=== PATIENT | female | born 1950 | race Caucasian/White ===

== ENCOUNTER 2018-08-24 13:04 | Inpatient (IN) | payer BC, OTHER ==
[2018-08-24] MEDS ORDERED: dilTIAZem HCL 50 MG/10 ML - 10 ML VIAL IVPUSH ONE ×2 (13:49→14:27)
[2018-08-24 13:56] LABS: BASO % 1.2 % (0-2.0); EOS % 1.4 % (0-4.5); HEMATOCRIT 41.9 % (32.4-45.2); HEMOGLOBIN 13.2 GM/dL (10.7-15.3); LYMPH % 24.3 % (8-40); MCH 22.9 pg (25.7-33.7); MCHC 31.6 g/dl (32.0-36.0); MEAN CELL VOLUME 72.4 fl (80-96); MEAN PLT VOLUME 7.9 fl (7.5-11.1); MONO % 8.3 % (3.8-10.2); NEUT % 64.8 % (42.8-82.8); PLATELET COUNT 210 K/MM3 (134-434); RDW 16.6 % (11.6-15.6); WHITE BLOOD COUNT 7.3 K/mm3 (4.0-10.0)
--- NOTE | 2018-08-24 13:56 | PDOC ---
History of Present Illness - General Chief Complaint: Chest Pain Stated Complaint: PCP SENT/CHEST PAIN/TACHYCARDIA Time Seen by Provider: 08/24/18 13:39 History Source: Patient, Primary Care Provider Exam Limitations: No Limitations - History of Present Illness Initial Comments: 08/24/18 13:51 The patient is a 67F with a PMH of CAD, HTN, diastolic dysfunction, HTN, and HLD who presents to the ER with complaints of palpitations. The patient states that she first noticed some shortness of breath and palpitations yesterday but didn't think anything of it. This morning, she states that the palpitations continued and her shortness of breath worsened so she called her PCP who sent her to her security chief museum's office. At her security chief museum's office she was noted to be in a-fib and was given medications. She denies any CP, fevers, chills, nausea , vomiting, cough, lightheadedness. Past History - Past Medical History Allergies/Adverse Reactions: Allergies Allergy/AdvReac Type Severity Reaction Status Date / Time Penicillins Allergy Rash Verified 08/24/18 13:09 Home Medications: Ambulatory Orders Aspirin [ASA -] 81 mg PO DAILY 08/24/18 Esomeprazole Magnesium [Nexium 24Hr] 40 mg PO DAILY 08/24/18 Hydrochlorothiazide [Hctz -] 12.5 mg PO DAILY 08/24/18 Nebivolol HCl [Bystolic] 10 mg PO DAILY 08/24/18 Pravastatin Sodium [Pravachol] 40 mg PO DAILY 08/24/18 Vitamin B Complex 1 each PO DAILY 08/24/18 Anemia: Yes (VIT B DEF) Asthma: Yes Cancer: No Cardiac Disorders: No CVA: No COPD: No CHF: No Dementia: No Diabetes: Yes (NEW DIAGNOSIS,NO MEDS) GI Disorders: Yes (GERD) Disorders: No HTN: Yes Hypercholesterolemia: No Liver Disease: Yes (ENLARGED LIVER) Seizures: No Thyroid Disease: No - Surgical History Abdominal Surgery: Yes (REPAIR UMBILICAL HERNIA) Appendectomy: No Cardiac Surgery: No Cholecystectomy: No Lung Surgery: No Neurologic Surgery: No Orthopedic Surgery: No - Suicide/Smoking/Psychosocial Hx Smoking History: Never smoked Have you smoked in the past 12 months: Yes Information on smoking cessation initiated: No Hx Alcohol Use: No Drug/Substance Use Hx: No Substance Use Type: None Hx Substance Use Treatment: No Review of Systems - Review of Systems Able to Perform ROS?: Yes Comments:: 08/24/18 13:56 GENERAL/CONSTITUTIONAL: No fever or chills. No weakness. HEAD, EYES, EARS, NOSE AND THROAT: No change in vision. No ear pain or discharge. No sore throat. CARDIOVASCULAR: Positive for palpitations. No chest pain or lightheadedness. RESPIRATORY: Positive for shortness of breath. No cough, wheezing, or hemoptysis. GASTROINTESTINAL: No nausea, vomiting, diarrhea, constipation, or abdominal pain. GENITOURINARY: No dysuria, frequency, hematuria, or change in urination. MUSCULOSKELETAL: No joint or muscle swelling or pain. No neck or back pain. SKIN: No rash or lesions. NEUROLOGIC: No headache, numbness, tingling, focal weakness, loss of consciousness, or change in strength/sensation. Is the patient limited Kyr[place]z proficient: No *Physical Exam - Vital Signs Last Vital Signs Temp Pulse Resp BP Pulse Ox 97.7 F 128 H 19 138/82 99 08/24/18 13:06 08/24/18 13:06 08/24/18 13:06 08/24/18 13:06 08/24/18 13:06 - Physical Exam Comments: 08/24/18 13:57 GENERAL: Well developed, well nourished. Awake and alert. No acute distress. HEENT: Normocephalic, atraumatic. Hearing grossly normal. Moist mucous membranes. PERRLA, EOMI. No conjunctival pallor. Sclera are non-icteric. Oropharynx is clear. NECK: Supple. Full ROM. No JVD CARDIOVASCULAR: Tachycardic with regular rhythm. No murmurs, rubs, or gallops. PULMONARY: No evidence of respiratory distress. Lungs clear to auscultation bilaterally. No wheezing, rales or rhonchi. ABDOMINAL: Soft. Non-tender. Non-distended. No rebound or guarding. GENITOURINARY: No CVA tenderness bilaterally. MUSCULOSKELETAL: Normal range of motion at all joints. No bony deformities or tenderness. EXTREMITIES: No cyanosis. No clubbing. No edema. No calf tenderness or swelling. SKIN: Warm and dry. Normal capillary refill. No rashes. No jaundice. NEUROLOGICAL: Alert, awake, appropriate. Cranial nerves 2-12 grossly intact. Normal speech. PSYCHIATRIC: Cooperative. Good eye contact. Appropriate mood and affect. Heart Score/ECG Review #1 General ECG Interpretation: Sinus Rhythm, Normal Rate, Normal Intervals, No acute ischemic changes Compared to previous ECG there are: Changes noted 08/24/18 15:00 A fib with RVR rate ~140 NJ - QRS 76 QTc 475 No STD or NEREYDA No signs of acute ischemia NEW CHANGES: a-fib. Prior EKG is NSR. ED Treatment Course - LABORATORY CBC & Chemistry Diagram: 08/24/18 13:48 08/24/18 13:48 - RADIOLOGY Radiology Studies Ordered: Category Date Time Status CHEST X-RAY PORTABLE* [RAD] Stat Radiology 08/24/18 13:46 Ordered Medical Decision Making - Medical Decision Making 08/24/18 15:02 The patient is a 67F with a PMH of CAD, HTN, HLD, and diastolic dysfunction who presents to the ER in new onset a-fib. The patient saw her security chief museum, Dr. Yeboah, who gave the patient IV lopressor x 2 without effect. She was also given eliquis. In our facility, she had an incoming BP of 130's/90's. Case d/w Dr. Howard who agrees wtih giving 10 dilt. 10 dilt given x 2 with effect. Trying 30 PO. Pt is continuing to be in a-fib with rates between 85-120. Will reassess and give another 30 if pt not tolerating and BP is stable. Dr. Vora called for admission. 08/24/18 15:[address] Shay for admission as the patient's PCP is Dr. Liu. HR between 85-115. Pressures stable. 08/24/18 15:41 I have endorsed the patient to Dr. Shay for admission. Will give 30 more diltiazem. *DC/Admit/Observation/Transfer Diagnosis at time of Disposition: New onset atrial fibrillation - Discharge Dispostion Condition at time of disposition: Guarded Decision to Admit order: Yes - Referrals - Patient Instructions - Post Discharge Activity
[2018-08-24] MEDS ORDERED: dilTIAZem HCL 50 MG/10 ML - 10 ML VIAL ONE (14:04)
[2018-08-24 14:19] LABS: INR 1.24 (0.83-1.09); PROTHROMBIN TIME (PATIENT) 14.7 SEC (9.7-13.0)
[2018-08-24] MEDS ORDERED: DILTIAZEM INJECTION 125 MG in SODIUM CHLORIDE 100 ML IVPB SCH (14:30)
[2018-08-24] MEDS ORDERED: dilTIAZem HCL 30 MG TABLET (FP) PO ONE ×2 (14:31→16:03)
[2018-08-24] MEDS ORDERED: dilTIAZem HCL 30 MG TABLET (FP) ONE ×2 (14:31→16:05)
[2018-08-24 14:38] LABS: ALBUMIN 3.9 g/dl (3.4-5.0); ALK PHOS 73 U/L (45-117); ANION GAP 8 MMOL/L (8-16); BILIRUBIN,TOTAL 0.3 mg/dL (0.2-1); BLOOD UREA NITROGEN 13 mg/dL (7-18); CALCIUM 9.1 mg/dL (8.5-10.1); CHLORIDE 105 mmol/L (98-107); CO2 29 mmol/L (21-32); CREATININE 0.7 mg/dL (0.55-1.3); GLUCOSE,RANDOM 82 mg/dL (74-106); MAGNESIUM 2.2 mg/dL (1.8-2.4); SGOT/AST 15 U/L (15-37); SGPT/ALT 21 U/L (13-61); SODIUM 143 mmol/L (136-145); TOT PROT 7.2 g/dl (6.4-8.2)
--- NOTE | 2018-08-24 14:53 | CON.CARD ---
Consult Consult Specialty:: Cardiology Referred by:: Lindsey Liu MD Reason for Consultation:: Rapid afib - History of Present Illness Chief Complaint: HERNANDEZ and palpitations History of Present Illness: 67-year-old female of /[place] descent with known history of coronary artery disease negative myocardial perfusion imaging study for myocardial ischemia July 14, 2016 angina pectoris, diastolic/systolic left ventricular dysfunction with chronic class 0-I [place] Heart [employer] classification left ventricular failure on echocardiography performed July 09, 2016 and August 12, 2017 (mild degree of systolic left ventricular dysfunction on echocardiography performed April 27, 2014), mitral valve regurgitation mild to moderate in severity on echocardiography performed July 09, 2016 and mild in severity on echocardiography performed July, aortic valve regurgitation moderate in severity, tricuspid valve regurgitation mild in severity with calculated RVSP of 36 mmHg on echocardiography performed July 09, 2016 and 30.6 mmHg on echocardiography performed August 12, 2017, hypertensive cardiovascular disease, hypercholesterolemia, benign positional vertigo, reactive airway disease, gastro -esophageal reflux disease, degenerative cervical disc disease with cervical radiculopathy, degenerative lumbosacral disc disease with lumbar radiculopathy and degenerative joint disease who was evaluated in the office August 24, 2018. Patient reports palpitations, dyspnea on exertion w/o near or true syncope, chest discomfort, orthopnea, paroxysmal nocturnal dyspnea or peripheral edema or fatigue. She was found in newly diagnosed rapid afib persisting despite IV Lopressor administered at office and referred to ED and rate-controlled with Cardizem. - History Source History Provided By: Patient Limitations to Obtaining History: No Limitations - Past Medical History Cardio/Vascular: Yes: HTN, Hyperlipdemia - Alcohol/Substance Use Hx Alcohol Use: No - Smoking History Smoking history: Never smoked Have you smoked in the past 12 months: Yes Home Medications - Allergies Allergies/Adverse Reactions: Allergies Allergy/AdvReac Type Severity Reaction Status Date / Time Penicillins Allergy Rash Verified 08/24/18 13:09 - Home Medications Home Medications: Ambulatory Orders Aspirin [ASA -] 81 mg PO DAILY 08/24/18 Esomeprazole Magnesium [Nexium 24Hr] 40 mg PO DAILY 08/24/18 Hydrochlorothiazide [Hctz -] 12.5 mg PO DAILY 08/24/18 Nebivolol HCl [Bystolic] 10 mg PO DAILY 08/24/18 Pravastatin Sodium [Pravachol] 40 mg PO DAILY 08/24/18 Vitamin B Complex 1 each PO DAILY 08/24/18 Family Disease History - Family Disease History Family Disease History: Heart Disease: Father ([place]), Mother ([place]) Review of Systems - Review of Systems Cardiovascular: reports: Palpitations Respiratory: reports: Exercise Intolerance, SOB, SOB on Exertion Vital Signs: Vital Signs Temperature 97.7 F 08/24/18 13:06 Pulse Rate 93 H 08/24/18 14:36 Respiratory Rate 17 08/24/18 14:24 Blood Pressure 122/77 08/24/18 14:36 O2 Sat by Pulse Oximetry (%) 98 08/24/18 14:24 Constitutional: Yes: No Distress, Calm Neck: Yes: Supple Respiratory: Yes: Regular, Diminished Gastrointestinal: Yes: Normal Bowel Sounds, Soft, Abdomen, Obese Cardiovascular: Yes: Tachycardia, Pulse Irregular JVD: No Carotid Bruit: No Heart Sounds: Yes: S1, S2 Edema: No - Other Data Labs, Other Data: CBC, BMP 08/24/18 13:48 08/24/18 13:48 INR, PTT INR 1.24 (0.83-1.09) H 08/24/18 13:48 Troponin, BNP 08/24/18 13:48 Troponin I < 0.02 Troponin, BNP 08/24/18 13:48 Troponin I < 0.02 Afib @ 136 Problem List - Problems (1) Paroxysmal atrial fibrillation Code(s): I48.0 - PAROXYSMAL ATRIAL FIBRILLATION (2) Hypertensive cardiomyopathy Code(s): I11.9 - HYPERTENSIVE HEART DISEASE WITHOUT HEART FAILURE; I43 - CARDIOMYOPATHY IN DISEASES CLASSIFIED ELSEWHERE Qualifiers: Heart failure presence: without heart failure Qualified Code(s): I11.9 - Hypertensive heart disease without heart failure; I43 - Cardiomyopathy in diseases classified elsewhere (3) Hyperlipidemia Code(s): E78.5 - HYPERLIPIDEMIA, UNSPECIFIED Qualifiers: Hyperlipidemia type: pure hypercholesterolemia Qualified Code(s): E78.00 - Pure hypercholesterolemia, unspecified; E78.0 - Pure hypercholesterolemia (4) Diastolic dysfunction Code(s): I51.9 - HEART DISEASE, UNSPECIFIED Assessment/Plan Echocardiography performed August 12, 2017 revealed normal left ventricular size and systolic function with estimated left ventricular ejection fraction between 55-60%, normal right ventricular size and systolic function, aortic valve leaflet sclerosis with no evidence of leaflet restriction and mild to moderate aortic valve regurgitation, mild mitral valve regurgitation, mild tricuspid valve regurgitation with calculated RVSP of 30.6 mmHg. Carotid Doppler study performed July 15, 2016 revealed normal carotid sonogram with no evidence of atherosclerotic plaque or hemodynamically significant stenosis. Myocardial perfusion imaging study performed July 14, 2016 revealed small size apical wall defect compatible with apical thinning/attenuation with normal left ventricular contraction pattern on LV gated analysis with calculated left ventricular ejection fraction of 72% at rest and 75% at peak exercise reported at 85% of maximum predicted target heart rate with fair exercise tolerance and capacity and appropriate blood pressure response to level of exercise. Patient exercised for 6 minutes and 46 seconds into stage III of Gene protocol with peak exercise heart rate of 132 beats per minutes and peak exercise blood pressure of 176/90 mmHg. ASSESSMENT: 1. Paroxysmal atrial fibrillation with RVR [id number] 2. Coronary artery disease negative myocardial perfusion imaging study for myocardial ischemia angina pectoris, stable. 3. Diastolic/systolic left ventricular dysfunction with chronic class 0-I [place] Heart [employer] classification left ventricular failure, compensated/ euvolemic. 4. Mitral valve regurgitation mild to moderate in severity on echocardiography performed July 09, 2016 and mild in severity on echocardiography performed August 12, 2017. 5. Aortic valve regurgitation moderate in severity. 6. Tricuspid valve regurgitation mild in severity with calculated RVSP of 36 mmHg on echocardiography performed July 09, 2016 and RVSP of 30.6 mmHg on echocardiography performed August 12, 2017. 7. Hypertensive cardiovascular disease, labile blood pressure. 8. Hypercholesterolemia, not at goal. 9. Abnormal hemoglobin A1C. 10. History of benign positional vertigo. 11. History of reactive airway disease. 12. History of gastro-esophageal reflux disease. 13. History of degenerative cervical disc disease with cervical radiculopathy. 14. History of degenerative lumbosacral disc disease with lumbar radiculopathy. 15. History of degenerative joint disease. 16. Exogenous obesity. PLAN: 1. Started Toprol XL 25 qd with uptitration as needed for rate-control, agree with Eliquis 5 bid and d/c ASA 81 qd given elevated risk score 2. F/u echo results, TSH 3. Continue statin 4. If afib persists will consider cardioversion either FRANCISCO-guided or after several weeks of Eliquis 5. Thank you for consultative opportunity
--- NOTE | 2018-08-24 15:05 | PDOC ---
Attending Attestation - Resident Resident Name: John Mckeon - ED Attending Attestation I have performed the following: I have examined & evaluated the patient, The case was reviewed & discussed with the resident, I agree w/resident's findings & plan - HPI HPI: 08/24/18 15:05 67 year old female with a significant past medical history of CAD, HTN, diastolic dysfunction, HTN, and HLD who presents to the emergency department for palpitations for 2 days. She states that today, she began to experience some associated shortness of breath with her palpitations. She reports that she went to her generator mechanic today by which he sent her to the ED for further evaluation of new onset afib. 08/24/18 17:20 - Physicial Exam PE: 08/24/18 17:22 NAD, well appearing, PERRL, EOMI, MMM, nl conjunctiva, anicteric; neck supple. lungs clear, irregular irregular, abdomen soft nontender. HERNANDEZ x4, no focal neuro deficits. b/l nonpitting edema in lower extrem. normal color for ethnicity , WWP. - Medical Decision Making 08/24/18 15:06 67F with a PMH of CAD, HTN, diastolic dysfunction, HTN, and HLD presenting with palpitations and cp/sob found in new onset Afib RVR rate controlled with diltiazem labs and lytes, TSH normal cards cs for management, PO AC given - seen by Dr. Cooper, inpatient echo and further care. admit to tele for further management of new onset Afib. 08/24/18 17:22 Heart Score/ECG Review - ECG Impressions Normal ECG: No Non-specific ST Elevation: No Ischemic Changes: No Tachycardia: Afib w/rapid Vent rate
[2018-08-24] MEDS ORDERED: metoPROLOL SUCCINATE 25 MG TAB.SR.24H (FP) PO ONE (16:19)
[2018-08-24 20:30] VITALS: BMI 37.1
[2018-08-24] MEDS: APIXABAN 5 MG TABLET PO SCH (21:14)
[2018-08-24] MEDS ORDERED: ATORVASTATIN CA 10 MG TABLET (FP) PO SCH (22:00)
[2018-08-25 06:33] LABS: BASO % 0.4 % (0-2.0); EOS % 2.3 % (0-4.5); HEMATOCRIT 37.1 % (32.4-45.2); HEMOGLOBIN 11.8 GM/dL (10.7-15.3); LYMPH % 26.6 % (8-40); MCH 22.9 pg (25.7-33.7); MCHC 31.7 g/dl (32.0-36.0); MEAN CELL VOLUME 72.2 fl (80-96); MEAN PLT VOLUME 8.3 fl (7.5-11.1); MONO % 9.1 % (3.8-10.2); NEUT % 61.6 % (42.8-82.8); PLATELET COUNT 171 K/MM3 (134-434); RBC 5.14 M/mm3 (3.60-5.2)
[2018-08-25 06:52] LABS: ALBUMIN 3.3 g/dl (3.4-5.0); ALK PHOS 61 U/L (45-117); ANION GAP 8 MMOL/L (8-16); BILIRUBIN,TOTAL 0.3 mg/dL (0.2-1); BLOOD UREA NITROGEN 17 mg/dL (7-18); CALCIUM 8.7 mg/dL (8.5-10.1); CHLORIDE 104 mmol/L (98-107); CHOLESTEROL 152 mg/dL (50-200); CO2 30 mmol/L (21-32); CREATININE 0.7 mg/dL (0.55-1.3); GLUCOSE,RANDOM 107 mg/dL (74-106); HDL CHOLESTEROL 47 mg/dL (40-60); POTASSIUM 3.9 mmol/L (3.5-5.1); SGOT/AST 13 U/L (15-37); SGPT/ALT 19 U/L (13-61); SODIUM 142 mmol/L (136-145); TRIGLYCERIDES 83 mg/dL (0-150)
--- NOTE | 2018-08-25 07:27 | HP ---
Admitting History and Physical - Admission History of Present Illness: 67 year old female with a significant past medical history of CAD, HTN, diastolic dysfunction, HTN, and HLD who presents to the emergency department for palpitations for 2 days. She states that today, she began to experience some associated shortness of breath with her palpitations. She reports that she went to her nurse extern today by which he sent her to the ED for further evaluation of new onset afib. - Past Medical History Cardiovascular: Yes: CAD, CHF (with preserved EF==55-60 %), HTN, Hyperlipdemia, Other (Valvular heart disease--aortic regurg mild to mod mild mitral and tricuspid) Gastrointestinal: Yes: GERD ...: No - Smoking History Smoking history: Never smoked Have you smoked in the past 12 months: Yes - Alcohol/Substance Use Hx Alcohol Use: No Home Medications - Allergies Allergies/Adverse Reactions: Allergies Allergy/AdvReac Type Severity Reaction Status Date / Time padmini Allergy Verified 08/24/18 20:58 mushroom Allergy Verified 08/24/18 20:58 Penicillins Allergy Rash Verified 08/24/18 13:09 lisinopril AdvReac Cough Verified 08/24/18 21:17 losartan AdvReac Cough Verified 08/24/18 21:17 - Home Medications Home Medications: Ambulatory Orders Aspirin [ASA -] 81 mg PO DAILY 08/24/18 Esomeprazole Magnesium [Nexium 24Hr] 40 mg PO DAILY 08/24/18 Hydrochlorothiazide [Hctz -] 12.5 mg PO DAILY 08/24/18 Nebivolol HCl [Bystolic] 10 mg PO DAILY 08/24/18 Pravastatin Sodium [Pravachol] 40 mg PO DAILY 08/24/18 Vitamin B Complex 1 each PO DAILY 08/24/18 Family Disease History - Family Disease History Family Disease History: Heart Disease: Father ([place]), Mother ([place]) Review of Systems - Review of Systems Cardiovascular: reports: Chest Pain (upper to neck), Palpitations, Shortness of Breath Respiratory: reports: SOB, SOB on Exertion. denies: Cough Gastrointestinal: reports: No Symptoms Genitourinary: reports: No Symptoms Neurological: reports: No Symptoms Physical Examination Vital Signs: Vital Signs Temperature 97.7 F 08/25/18 06:00 Pulse Rate 60 08/25/18 06:00 Respiratory Rate 20 08/25/18 06:00 Blood Pressure 136/58 L 11/08/18 06:00 O2 Sat by Pulse Oximetry (%) 96 08/24/18 21:00 Cardiovascular: Yes: Murmur, S1, S2 Respiratory: Yes: Regular, CTA Bilaterally Gastrointestinal: Yes: Normal Bowel Sounds, Soft. No: Tenderness Edema: No Neurological: Yes: Alert, Oriented Labs: CBC, BMP 08/25/18 05:30 08/25/18 05:30 Imaging - Results Chest X-ray: Report Reviewed Ultrasound: Report Reviewed (no dvt) Problem List - Problems (1) New onset atrial fibrillation Assessment/Plan: -Now in Sinus -Monitor on Toprol and eliquis -Echo -tsh,d-dimer normal Code(s): I48.91 - UNSPECIFIED ATRIAL FIBRILLATION (2) HTN (hypertension) Assessment/Plan: -MOnitor on meds Selected Entries 08/24/18 08/25/18 08/25/18 20:10 02:00 06:00 Blood Pressure 129/69 117/56 L 136/58 L Code(s): I10 - ESSENTIAL (PRIMARY) HYPERTENSION (3) CAD (coronary artery disease) Assessment/Plan: -Atypical symptoms at this time -Stress Test Code(s): I25.10 - ATHSCL HEART DISEASE OF [place] CORONARY ARTERY W/O ANG PCTRS (4) Chest pain, atypical Assessment/Plan: -Stress test -CE negative Code(s): R07.89 - OTHER CHEST PAIN
[2018-08-25 08:39] VITALS: BP 144/71; PULSE 66; TEMP 97.8
[2018-08-25] MEDS ORDERED: PANTOPRAZOLE 40 MG TABLET (FP) PO SCH (10:00)
[2018-08-25] MEDS ORDERED: FLU VACCINE QUAD 60 MCG/0.5 ML (MDV 18-19) IM ONE (10:00)
[2018-08-25] MEDS ORDERED: metoPROLOL SUCCINATE 25 MG TAB.SR.24H (FP) PO SCH (10:00)
[2018-08-25] MEDS ORDERED: ASPIRIN 81 MG CHEWABLE TABLETS PO SCH (10:00)
[2018-08-25] MEDS ORDERED: HYDROCHLOROTHIAZIDE 12.5 MG CAPSULE (FP) PO SCH (10:00)
[2018-08-25] MEDS: APIXABAN 5 MG TABLET PO SCH (10:42)
--- NOTE | 2018-08-25 11:08 | EKG ---
Test Reason : Blood Pressure : / mmHG Vent. Rate : 065 BPM Atrial Rate : 065 BPM P-R Int : 152 ms QRS Dur : 082 ms QT Int : 454 ms P-R-T Axes : 031 -04 044 degrees QTc Int : 472 ms NORMAL SINUS RHYTHM NORMAL ECG WHEN COMPARED WITH ECG OF 24-AUG-2018 18:33, NO SIGNIFICANT CHANGE WAS FOUND Confirmed by RADHA NDIAYE MD ([id number]) on 08/25/2018 11:07:23 AM Referred By: Confirmed By:RADHA NDIAYE MD
--- NOTE | 2018-08-25 11:10 | EKG ---
Test Reason : Blood Pressure : / mmHG Vent. Rate : 067 BPM Atrial Rate : 067 BPM P-R Int : 166 ms QRS Dur : 080 ms QT Int : 440 ms P-R-T Axes : 030 -07 042 degrees QTc Int : 464 ms POOR DATA QUALITY, INTERPRETATION MAY BE ADVERSELY AFFECTED NORMAL SINUS RHYTHM NORMAL ECG WHEN COMPARED WITH ECG OF 04-OCT-2011 05:41, NONSPECIFIC T WAVE ABNORMALITY HAS REPLACED INVERTED T WAVES IN INFERIOR LEADS Confirmed by RADHA NDIAYE MD ([id number]) on 08/25/2018 11:10:11 AM Referred By: Confirmed By:RADHA NDIAYE MD
--- NOTE | 2018-08-25 11:11 | EKG ---
Test Reason : Blood Pressure : / mmHG Vent. Rate : 138 BPM Atrial Rate : 159 BPM P-R Int : 000 ms QRS Dur : 076 ms QT Int : 314 ms P-R-T Axes : 000 -03 022 degrees QTc Int : 475 ms ATRIAL FIBRILLATION WITH RAPID VENTRICULAR RESPONSE ABNORMAL ECG WHEN COMPARED WITH ECG OF 04-OCT-2011 05:41, ATRIAL FIBRILLATION HAS REPLACED SINUS RHYTHM VENT. RATE HAS INCREASED BY 52 BPM NONSPECIFIC T WAVE ABNORMALITY HAS REPLACED INVERTED T WAVES IN INFERIOR LEADS Confirmed by RADHA NDIAYE MD ([id number]) on 08/25/2018 11:11:07 AM Referred By: Confirmed By:RADHA NDIAYE MD
--- NOTE | 2018-08-25 11:54 | ECHO ---
Name: DILAN ALLEN Exam:Adult Echocardiogram Study Date: 08/25/2018 09:04 AM Age: 67 yrs Reason For Study: A-Fib Height: 60 in Weight: 192 lb BSA: 1.8 m2 MMode/2D Measurements & Calculations IVSd: 0.86 cm Ao root diam: 3.4 cm LVIDd: 5.1 cm LA dimension: 3.6 cm LVIDs: 3.1 cm LVPWd: 1.2 cm EDV(Teich): 124.4 ml TAPSE: 3.4 cm ESV(Teich): 37.1 ml RV S Garry: 13.7 cm/sec Doppler Measurements & Calculations MV E max garry: 95.4 cm/sec Ao V2 max: 192.0 cm/sec MV A max garry: 73.7 cm/sec Ao max P.7 mmHg MV E/A: 1.3 AI P1/2t: 687.1 msec AI max garry: 333.9 cm/sec TR max garry: 253.8 cm/sec AI max P.6 mmHg TR max P.8 mmHg AI dec slope: 142.3 cm/sec2 Med Peak E' Garry: 7.9 cm/sec Med E/e': 12.0 Lat Peak E' Garry: 7.8 cm/sec Lat E/e': 12.2 Procedure A complete two-dimensional transthoracic echocardiogram was performed (2D, M-mode, Doppler and color flow Doppler). Left Ventricle The left ventricular size, thickness and function are normal. The left ventricular ejection fraction is normal. Ejection Fraction = 55-60%. The left ventricular wall motion is normal. Right Ventricle The right ventricle is normal in size and function. Atria Normal left and right atrial size and function. Mitral Valve There is no mitral regurgitation noted. Tricuspid Valve No tricuspid regurgitation. There was insufficient TR detected to calculate RV systolic pressure. Aortic Valve No hemodynamically significant valvular aortic stenosis. Mild aortic regurgitation. Pulmonic Valve There is no pulmonic valvular regurgitation. Great Vessels The aortic root is normal size. Pericardium/Pleura There is no pericardial effusion. Interpretation Summary The left ventricular size, thickness and function are normal The right ventricle is normal in size and function. Mild aortic regurgitation. MD Willy Segura 08/25/2018 11:53 AM
--- NOTE | 2018-08-25 11:57 | PN ---
Progress Note, Physician History of Present Illness: Palpitations, dyspnea on exertion resolved after spontaneous conversion to SR with rate-control. - Current Medication List Current Medications: Active Medications Apixaban (Eliquis -) 5 mg PO BID [facility] Last Admin: 08/25/18 10:42 Dose: 5 mg Atorvastatin Calcium (Lipitor -) 10 mg PO HS [facility] Last Admin: 08/24/18 21:14 Dose: 10 mg Hydrochlorothiazide (Hctz -) 12.5 mg PO DAILY [facility] Last Admin: 08/25/18 10:42 Dose: 12.5 mg Metoprolol Succinate (Toprol Xl -) 25 mg PO DAILY [facility] Last Admin: 08/25/18 10:42 Dose: 25 mg Pantoprazole Sodium (Protonix -) 40 mg PO DAILY [facility] Last Admin: 08/25/18 10:42 Dose: 40 mg - Objective Vital Signs: Vital Signs Temperature 97.8 F 08/25/18 08:35 Pulse Rate 66 08/25/18 08:35 Respiratory Rate 20 08/25/18 08:35 Blood Pressure 144/71 08/25/18 08:35 O2 Sat by Pulse Oximetry (%) 98 08/25/18 08:35 Constitutional: Yes: No Distress, Calm Neck: Yes: Supple Cardiovascular: Yes: Regular Rate and Rhythm Respiratory: Yes: Regular, CTA Bilaterally Gastrointestinal: Yes: Normal Bowel Sounds, Soft Edema: No Labs: CBC, BMP 08/25/18 05:30 08/25/18 05:30 INR, PTT INR 1.24 (0.83-1.09) H 08/24/18 13:48 - ....Imaging EKG: Report Reviewed (Tele: PAF->SR) Problem List - Problems (1) Paroxysmal atrial fibrillation Code(s): I48.0 - PAROXYSMAL ATRIAL FIBRILLATION (2) Hypertensive cardiomyopathy Code(s): I11.9 - HYPERTENSIVE HEART DISEASE WITHOUT HEART FAILURE; I43 - CARDIOMYOPATHY IN DISEASES CLASSIFIED ELSEWHERE Qualifiers: Heart failure presence: without heart failure Qualified Code(s): I11.9 - Hypertensive heart disease without heart failure; I43 - Cardiomyopathy in diseases classified elsewhere (3) Hyperlipidemia Code(s): E78.5 - HYPERLIPIDEMIA, UNSPECIFIED Qualifiers: Hyperlipidemia type: pure hypercholesterolemia Qualified Code(s): E78.00 - Pure hypercholesterolemia, unspecified; E78.0 - Pure hypercholesterolemia (4) Diastolic dysfunction Code(s): I51.9 - HEART DISEASE, UNSPECIFIED Assessment/Plan Echocardiography 08/25/2018 Normal biventricular size and fxn, mild AR Echocardiography performed August 12, 2017 revealed normal left ventricular size and systolic function with estimated left ventricular ejection fraction between 55-60%, normal right ventricular size and systolic function, aortic valve leaflet sclerosis with no evidence of leaflet restriction and mild to moderate aortic valve regurgitation, mild mitral valve regurgitation, mild tricuspid valve regurgitation with calculated RVSP of 30.6 mmHg. Carotid Doppler study performed July 15, 2016 revealed normal carotid sonogram with no evidence of atherosclerotic plaque or hemodynamically significant stenosis. Myocardial perfusion imaging study performed July 14, 2016 revealed small size apical wall defect compatible with apical thinning/attenuation with normal left ventricular contraction pattern on LV gated analysis with calculated left ventricular ejection fraction of 72% at rest and 75% at peak exercise reported at 85% of maximum predicted target heart rate with fair exercise tolerance and capacity and appropriate blood pressure response to level of exercise. Patient exercised for 6 minutes and 46 seconds into stage III of Gene protocol with peak exercise heart rate of 132 beats per minutes and peak exercise blood pressure of 176/90 mmHg. ASSESSMENT: 1. Palpitations, Paroxysmal atrial fibrillation now in SR [id number]=0 2. Coronary artery disease negative myocardial perfusion imaging study for myocardial ischemia angina pectoris, stable. 3. Diastolic/systolic left ventricular dysfunction with chronic class 0-I [place] [employer] classification left ventricular failure, compensated/ euvolemic. 4. Hypertensive cardiovascular disease, labile blood pressure. 5. Hypercholesterolemia, not at goal. 6. Abnormal hemoglobin A1C. 7. History of benign positional vertigo. 8. History of reactive airway disease. 9. History of gastro-esophageal reflux disease. 10. History of degenerative cervical disc disease with cervical radiculopathy. 11. History of degenerative lumbosacral disc disease with lumbar radiculopathy. 12. History of degenerative joint disease. 13. Exogenous obesity. PLAN: 1. Continue Toprol XL 25 qd and Eliquis 5 bid with d/c ASA 81 qd given elevated risk score 2. Continue statin 3. As patient remains in SR, d/c planning with f/u with Dr. Meng [phone] next week
--- NOTE | 2018-08-25 12:06 | DS ---
Physical Examination Vital Signs: Vital Signs Temperature 97.8 F 08/25/18 08:35 Pulse Rate 66 08/25/18 08:35 Respiratory Rate 20 08/25/18 08:35 Blood Pressure 144/71 08/25/18 08:35 O2 Sat by Pulse Oximetry (%) 98 08/25/18 08:35 Labs: CBC, BMP 08/25/18 05:30 08/25/18 05:30 Discharge Summary Reason For Visit: NEW ONSET ATRIAL FIBRILLATION Current Active Problems CAD (coronary artery disease) (Acute) Chest pain, atypical (Acute) Diastolic dysfunction (Acute) HTN (hypertension) (Acute) Hyperlipidemia (Acute) Hypertensive cardiomyopathy (Acute) New onset atrial fibrillation (Acute) Paroxysmal atrial fibrillation (Acute) Condition: Improved - Instructions Referrals: Lindsey Liu MD [Staff Physician] - 1 Week Disposition: HOME - Home Medications Comprehensive Discharge Medication List: Ambulatory Orders Aspirin [ASA -] 81 mg PO DAILY 08/24/18 Esomeprazole Magnesium [Nexium 24Hr] 40 mg PO DAILY 08/24/18 Hydrochlorothiazide [Hctz -] 12.5 mg PO DAILY 08/24/18 Pravastatin Sodium [Pravachol] 40 mg PO DAILY 08/24/18 Apixaban [Eliquis -] 5 mg PO BID #60 tablet 08/25/18 Metoprolol Succinate [Toprol XL -] 25 mg PO DAILY #30 tab.sr.24h 08/25/18
== END 2018-08-25 15:08 | disposition home or self-care (01) | DRG 309 ==
LOC: JER 13:04 → JERBED 14:48 → J4W 19:55
PROVIDERS: ADMIT Family Medicine; ATTEND Family Medicine
DX: I48.0 Paroxysmal atrial fibrillation (principal); I50.40 Unspecified combined systolic (congestive) and diastolic (congestive) heart failure; I25.10 Atherosclerotic heart disease of native coronary artery without angina pectoris; E78.5 Hyperlipidemia, unspecified; K21.9 Gastro-esophageal reflux disease without esophagitis; D64.9 Anemia, unspecified; E53.9 Vitamin B deficiency, unspecified; R16.0 Hepatomegaly, not elsewhere classified; I08.3 Combined rheumatic disorders of mitral, aortic and tricuspid valves; I11.0 Hypertensive heart disease with heart failure; I43 Cardiomyopathy in diseases classified elsewhere
CPT/HCPCS: 36415; 71045-TC-FY; 80053; 80061; 82550; 83036; 83721; 83735; 84443; 84484; 85025; 85379; 85610; 90688; 93005; 93010; 93306-TC; 93970-TC; 99285-25; G0008

== ENCOUNTER 2020-09-23 14:15 | Inpatient (IN) | payer OTHER ==
[2020-09-23] MEDS ORDERED: SODIUM CHLORIDE IV ONE (14:46)
[2020-09-23 16:03] LABS: BASO % 0.1 % (0-2.0); HEMATOCRIT 36.1 % (32.4-45.2); HEMOGLOBIN 11.8 GM/dL (10.7-15.3); LYMPH % 6.6 % (8-40); MCH 23.6 pg (25.7-33.7); MCHC 32.7 g/dl (32.0-36.0); MEAN CELL VOLUME 72.2 fl (80-96); MEAN PLT VOLUME 8.4 fl (7.5-11.1); MONO % 6.6 % (3.8-10.2); NEUT % 86.7 % (42.8-82.8); PLATELET COUNT 161 K/MM3 (134-434); RDW 15.3 % (11.6-15.6); WHITE BLOOD COUNT 9.5 K/mm3 (4.0-10.0)
[2020-09-23] MEDS ORDERED: MEROPENEM 1 GM in DEXTROSE 5%-WATER 100 ML IVPB ONE (16:04)
[2020-09-23 16:08] LABS: VENOUS BASE EXCESS -0.7 mmol/L (-2-2); VENOUS O2 SATURATION 52.8 % (70-80); VENOUS PCO2 40.4 mmHg (38-52); VENOUS PH 7.394 (7.310-7.410)
[2020-09-23 16:14] LABS: INR 1.79 (0.83-1.09); PROTHROMBIN TIME (PATIENT) 21.7 SEC (9.7-13.0)
[2020-09-23 16:16] LABS: ACTIVATED PTT 33.6 SECONDS (25.2-36.5)
[2020-09-23] MEDS ORDERED: ACETAMINOPHEN 1000 MG/100 ML BAG IVPB ONE (16:17)
[2020-09-23 16:36] LABS: CHLORIDE 92 mmol/L (98-107); SODIUM 127 mmol/L (136-145)
[2020-09-23 16:38] LABS: BLOOD UREA NITROGEN 21.4 mg/dL (7-18); CALCIUM 8.4 mg/dL (8.5-10.1)
[2020-09-23 16:39] LABS: ALBUMIN 3.1 g/dl (3.4-5.0); ANION GAP 12 MMOL/L (8-16); CO2 24 mmol/L (21-32); GLUCOSE,RANDOM 181 mg/dL (74-106)
[2020-09-23 16:41] LABS: CREATININE 1.3 mg/dL (0.55-1.3); SGOT/AST 45 U/L (15-37); SGPT/ALT 122 U/L (13-61)
[2020-09-23 16:42] LABS: BILIRUBIN,TOTAL 1.3 mg/dL (0.2-1); TOT PROT 6.1 g/dl (6.4-8.2)
[2020-09-23 16:44] LABS: ALK PHOS 265 U/L (45-117)
[2020-09-23] MEDS ORDERED: ACETAMINOPHEN INJECTION 100 ML IVPB ONE (16:54)
[2020-09-23] MEDS ORDERED: MEROPENEM 1 GM VIAL (RESTRICTED TO ID) IVPB ONE (16:54)
[2020-09-23 17:34] LABS: EPI CELLS 18 /uL (0-25.1); HYALINE CASTS 3 /uL (0-3.1); PH,URINE 5.5 (5.0-8.0); URINE APPEARANCE CLEAR; URINE BACTERIA 9 /uL (0-1359); URINE BILIRUBIN 1+ (NEGATIVE); URINE COLOR DK YELLOW; URINE GLUCOSE (UA) NEGATIVE (NEGATIVE); URINE KETONE NEGATIVE (NEGATIVE); URINE LEUK ESTERASE TRACE (NEGATIVE); URINE NITRITE NEGATIVE (NEGATIVE); URINE PROTEIN TRACE (NEGATIVE); URINE WBC 27 /uL (0-25.8)
[2020-09-23] MEDS ORDERED: LACTATED RINGERS SOLUTION 1000 ML INFUS.BAG IV ONE (17:41)
[2020-09-23 17:51] LABS: URINE RBC 65.8 /uL (0-23.9)
[2020-09-23] MEDS ORDERED: ALBUTEROL SO4 HFA INHALER IH PRN (23:05)
[2020-09-23] MEDS ORDERED: ONDANSETRON 4 MG/2 ML VIAL IVPUSH PRN (23:52)
[2020-09-24] MEDS ORDERED: METOPROLOL TARTRATE 5 MG/5 ML VIAL IVPUSH ONE (04:15)
[2020-09-24] MEDS ORDERED: ACETAMINOPHEN INJECTION 100 ML IVPB ONE (04:43)
[2020-09-24] MEDS: ACETAMINOPHEN 1000 MG/100 ML BAG IVPB PRN ×2 (05:06→13:14)
[2020-09-24] MEDS ORDERED: DEXTROSE 5%-WATER 100 ML IVPB ONE ×2 (05:36→18:33)
[2020-09-24] MEDS ORDERED: MEROPENEM 1 GM VIAL (RESTRICTED TO ID) IVPB ONE ×2 (05:36→18:33)
[2020-09-24] MEDS ORDERED: MEROPENEM 1 GM in DEXTROSE 5%-WATER 100 ML IVPB SCH (06:00)
[2020-09-24] MEDS: INSULIN SLIDING SCALE (NOVOLOG) 1 VIAL SQ SCH ×4 (06:34→21:33)
[2020-09-24] MEDS ORDERED: AMIODARONE IN DEXTROSE,ISO-OSM 150 MG/100 ML BAG IVPB ONE (06:45)
[2020-09-24] MEDS ORDERED: AMIODARONE IN DEXTROSE,ISO-OSM 360 MG/200 ML BAG IVPB ONE (07:00)
[2020-09-24 07:27] LABS: BASO % 0.1 % (0-2.0); HEMATOCRIT 30.7 % (32.4-45.2); HEMOGLOBIN 10.2 GM/dL (10.7-15.3); LYMPH % 8.9 % (8-40); MCH 23.5 pg (25.7-33.7); MCHC 33.1 g/dl (32.0-36.0); MEAN CELL VOLUME 71.1 fl (80-96); MEAN PLT VOLUME 8.5 fl (7.5-11.1); PLATELET COUNT 155 K/MM3 (134-434); RBC 4.32 M/mm3 (3.60-5.2); RDW 15.4 % (11.6-15.6); WHITE BLOOD COUNT 10.1 K/mm3 (4.0-10.0)
[2020-09-24 07:33] LABS: ALBUMIN 2.5 g/dl (3.4-5.0); BLOOD UREA NITROGEN 11.8 mg/dL (7-18); MAGNESIUM 1.6 mg/dL (1.8-2.4)
[2020-09-24] MEDS ORDERED: NOREPINEPHRINE BITARTRATE 4 MG/4 ML ML IV ONE (07:35)
[2020-09-24 07:36] LABS: CREATININE 0.8 mg/dL (0.55-1.3); PHOSPHOROUS 2.3 mg/dL (2.5-4.9)
[2020-09-24 07:38] LABS: BILIRUBIN,TOTAL 1.2 mg/dL (0.2-1)
[2020-09-24] MEDS ORDERED: MAGNESIUM SULF 50% (8.12 MEQ/2 ML-1 GM VIAL) IVPB ONE (07:46)
[2020-09-24] MEDS: NOREPINEPHRINE BITARTRATE 8,000 MCG/500 ML BAG IVPB SCH (07:54)
[2020-09-24] MEDS ORDERED: D5-NS + 20 MEQ KCL - 20 MEQ/1,000 ML INFUS.BAG IV SCH (08:00)
[2020-09-24] MEDS: APIXABAN 5 MG TABLET PO SCH ×2 (09:21→21:19)
[2020-09-24] MEDS: ASPIRIN 81 MG CHEWABLE TABLETS PO SCH (09:21)
[2020-09-24] MEDS: BUDESONIDE/FORMETEROL FUMARATE 80/4.5 mcg INHALER IH SCH ×2 (09:23→21:20)
[2020-09-24] MEDS ORDERED: ENOXAPARIN NA (PORCINE) 40 MG/0.4 ML DISP.SYRIN SQ SCH (10:00)
[2020-09-24] MEDS: MUPIROCIN 2% TOPICAL OINTMENT FOR DECOLONIZATION NS SCH ×2 (10:00→21:19)
[2020-09-24] MEDS: AMIODARONE IN DEXTROSE,ISO-OSM 360 MG/200 ML BAG IVPB SCH (12:54)
[2020-09-24 14:48] LABS: ALBUMIN 2.6 g/dl (3.4-5.0); BLOOD UREA NITROGEN 11.1 mg/dL (7-18); CALCIUM 7.7 mg/dL (8.5-10.1)
[2020-09-24 14:53] LABS: CREATININE 0.9 mg/dL (0.55-1.3)
[2020-09-24 14:54] LABS: BILIRUBIN,TOTAL 0.8 mg/dL (0.2-1); TOT PROT 5.1 g/dl (6.4-8.2)
[2020-09-24] MEDS: MEROPENEM 1 GM in DEXTROSE 5%-WATER 100 ML IVPB SCH (18:34)
[2020-09-24] MEDS ORDERED: SODIUM CHLORIDE 1,000 ML IV SCH (19:45)
[2020-09-24] MEDS: CHLORHEXIDINE GLUCONATE 4% CLEANSER FOR DECOLONIZATION TP SCH (21:19)
[2020-09-24] MEDS: ROSUVASTATIN CA 10 MG TABLET PO SCH (21:19)
[2020-09-24] MEDS ORDERED: COSYNTROPIN 0.25 MG VIAL IVPUSH ONE (23:30)
[2020-09-25] MEDS ORDERED: MEROPENEM 1 GM VIAL (RESTRICTED TO ID) IVPB ONE ×3 (01:56→17:58)
[2020-09-25] MEDS ORDERED: DEXTROSE 5%-WATER 100 ML IVPB ONE ×3 (01:57→17:58)
[2020-09-25] MEDS: MEROPENEM 1 GM in DEXTROSE 5%-WATER 100 ML IVPB SCH ×3 (02:01→18:12)
[2020-09-25] MEDS: NOREPINEPHRINE BITARTRATE 8,000 MCG/500 ML BAG IVPB SCH ×2 (02:02→07:15)
[2020-09-25] MEDS: AMIODARONE IN DEXTROSE,ISO-OSM 360 MG/200 ML BAG IVPB SCH (02:02)
[2020-09-25] MEDS: INSULIN SLIDING SCALE (NOVOLOG) 1 VIAL SQ SCH ×4 (06:20→22:02)
[2020-09-25] MEDS ORDERED: FUROSEMIDE 40 MG/4 ML INJECTABLE VIAL IVPUSH ONE (07:15)
[2020-09-25 07:27] LABS: BASO % 0.1 % (0-2.0); HEMATOCRIT 31.5 % (32.4-45.2); HEMOGLOBIN 10.1 GM/dL (10.7-15.3); LYMPH % 7.2 % (8-40); MCH 23.3 pg (25.7-33.7); MCHC 32.3 g/dl (32.0-36.0); MEAN CELL VOLUME 72.1 fl (80-96); MEAN PLT VOLUME 8.8 fl (7.5-11.1); MONO % 5.1 % (3.8-10.2); NEUT % 87.6 % (42.8-82.8); PLATELET COUNT 236 K/MM3 (134-434); RBC 4.36 M/mm3 (3.60-5.2); RDW 15.5 % (11.6-15.6); WHITE BLOOD COUNT 17.4 K/mm3 (4.0-10.0)
[2020-09-25 07:41] LABS: ALBUMIN 2.4 g/dl (3.4-5.0); CALCIUM 7.4 mg/dL (8.5-10.1)
[2020-09-25 07:43] LABS: BLOOD UREA NITROGEN 10.6 mg/dL (7-18); MAGNESIUM 1.9 mg/dL (1.8-2.4)
[2020-09-25 07:46] LABS: BILIRUBIN,TOTAL 0.9 mg/dL (0.2-1); CREATININE 0.7 mg/dL (0.55-1.3); TOT PROT 5.1 g/dl (6.4-8.2)
[2020-09-25] MEDS: ASPIRIN 81 MG CHEWABLE TABLETS PO SCH (10:14)
[2020-09-25] MEDS: MUPIROCIN 2% TOPICAL OINTMENT FOR DECOLONIZATION NS SCH ×2 (10:14→21:36)
[2020-09-25] MEDS: APIXABAN 5 MG TABLET PO SCH ×2 (10:14→21:36)
[2020-09-25] MEDS: BUDESONIDE/FORMETEROL FUMARATE 80/4.5 mcg INHALER IH SCH ×2 (10:19→21:36)
[2020-09-25] MEDS: ACETAMINOPHEN 325 MG TABLET (FP) PO PRN ×2 (11:34→21:55)
[2020-09-25 12:40] LABS: EPI CELLS 4 /uL (0-25.1); HYALINE CASTS 1 /uL (0-3.1); URINE APPEARANCE CLEAR; URINE BACTERIA 2 /uL (0-1359); URINE BILIRUBIN NEGATIVE (NEGATIVE); URINE COLOR YELLOW; URINE GLUCOSE (UA) NEGATIVE (NEGATIVE); URINE KETONE NEGATIVE (NEGATIVE); URINE LEUK ESTERASE NEGATIVE (NEGATIVE); URINE NITRITE NEGATIVE (NEGATIVE); URINE PROTEIN NEGATIVE (NEGATIVE); URINE RBC 14 /uL (0-23.9); URINE UROBILINOGEN 0.2 mg/dL (0.2-1.0); URINE WBC 2 /uL (0-25.8)
[2020-09-25] MEDS: AMIODARONE HCL 200 MG TABLET PO SCH ×2 (12:55→21:36)
[2020-09-25 14:55] VITALS: BMI 37.3
[2020-09-25] MEDS: ROSUVASTATIN CA 10 MG TABLET PO SCH (21:36)
[2020-09-25] MEDS: CHLORHEXIDINE GLUCONATE 4% CLEANSER FOR DECOLONIZATION TP SCH (21:36)
[2020-09-25] MEDS: FLUDROCORTISONE ACETATE 0.1 MG TABLET (FP) PO SCH (21:36)
[2020-09-25] MEDS ORDERED: NOREPINEPHRINE BITARTRATE 4 MG/4 ML ML IV ONE (21:48)
[2020-09-26] MEDS ORDERED: DEXTROSE 5%-WATER 100 ML IVPB ONE ×3 (00:21→16:04)
[2020-09-26] MEDS ORDERED: MEROPENEM 1 GM VIAL (RESTRICTED TO ID) IVPB ONE ×3 (00:21→16:04)
[2020-09-26] MEDS: MEROPENEM 1 GM in DEXTROSE 5%-WATER 100 ML IVPB SCH ×3 (02:50→17:44)
[2020-09-26] MEDS ORDERED: ACETAMINOPHEN 1000 MG/100 ML BAG IVPB PRN (03:57)
[2020-09-26] MEDS: INSULIN SLIDING SCALE (NOVOLOG) 1 VIAL SQ SCH ×4 (06:48→21:12)
[2020-09-26] MEDS: NOREPINEPHRINE BITARTRATE 8,000 MCG/500 ML BAG IVPB SCH (08:00)
[2020-09-26 08:28] LABS: BASO % 0.6 % (0-2.0); EOS % 0.5 % (0-4.5); HEMATOCRIT 32.7 % (32.4-45.2); HEMOGLOBIN 10.6 GM/dL (10.7-15.3); LYMPH % 12.8 % (8-40); MCH 23.2 pg (25.7-33.7); MCHC 32.5 g/dl (32.0-36.0); MEAN CELL VOLUME 71.3 fl (80-96); MEAN PLT VOLUME 8.3 fl (7.5-11.1); MONO % 10.5 % (3.8-10.2); NEUT % 75.6 % (42.8-82.8); PLATELET COUNT 246 K/MM3 (134-434); RBC 4.58 M/mm3 (3.60-5.2); RDW 15.6 % (11.6-15.6); WHITE BLOOD COUNT 10.3 K/mm3 (4.0-10.0)
[2020-09-26 08:39] LABS: CALCIUM 8.1 mg/dL (8.5-10.1)
[2020-09-26 08:40] LABS: ALBUMIN 2.2 g/dl (3.4-5.0); BLOOD UREA NITROGEN 7.2 mg/dL (7-18)
[2020-09-26 08:44] LABS: BILIRUBIN,TOTAL 0.9 mg/dL (0.2-1); CREATININE 0.5 mg/dL (0.55-1.3); PHOSPHOROUS 3.1 mg/dL (2.5-4.9)
[2020-09-26] MEDS: APIXABAN 5 MG TABLET PO SCH ×2 (09:40→21:07)
[2020-09-26] MEDS: AMIODARONE HCL 200 MG TABLET PO SCH ×2 (09:40→21:07)
[2020-09-26] MEDS: BUDESONIDE/FORMETEROL FUMARATE 80/4.5 mcg INHALER IH SCH ×2 (09:42→21:12)
[2020-09-26] MEDS: MUPIROCIN 2% TOPICAL OINTMENT FOR DECOLONIZATION NS SCH ×2 (11:00→21:07)
[2020-09-26] MEDS: METOPROLOL TARTRATE 25 MG TABLET (FP) PO SCH ×2 (11:43→21:07)
[2020-09-26] MEDS: PANTOPRAZOLE 20 MG TABLET PO SCH (20:15)
[2020-09-26] MEDS: CHLORHEXIDINE GLUCONATE 4% CLEANSER FOR DECOLONIZATION TP SCH (21:07)
[2020-09-26] MEDS: FLUDROCORTISONE ACETATE 0.1 MG TABLET (FP) PO SCH (21:07)
[2020-09-26] MEDS: ROSUVASTATIN CA 10 MG TABLET PO SCH (21:07)
[2020-09-27] MEDS ORDERED: MEROPENEM 1 GM VIAL (RESTRICTED TO ID) IVPB ONE ×3 (02:47→16:48)
[2020-09-27] MEDS ORDERED: DEXTROSE 5%-WATER 100 ML IVPB ONE ×3 (02:48→16:48)
[2020-09-27] MEDS: MEROPENEM 1 GM in DEXTROSE 5%-WATER 100 ML IVPB SCH ×3 (02:58→16:59)
[2020-09-27] MEDS: INSULIN SLIDING SCALE (NOVOLOG) 1 VIAL SQ SCH ×4 (06:16→22:00)
[2020-09-27 07:25] LABS: BASO % 0.2 % (0-2.0); EOS % 0.5 % (0-4.5); HEMATOCRIT 30.3 % (32.4-45.2); HEMOGLOBIN 9.6 GM/dL (10.7-15.3); LYMPH % 18.8 % (8-40); MCH 22.8 pg (25.7-33.7); MCHC 31.6 g/dl (32.0-36.0); MEAN CELL VOLUME 72.2 fl (80-96); MEAN PLT VOLUME 7.8 fl (7.5-11.1); MONO % 13.1 % (3.8-10.2); NEUT % 67.4 % (42.8-82.8); PLATELET COUNT 269 K/MM3 (134-434); RBC 4.19 M/mm3 (3.60-5.2); RDW 15.1 % (11.6-15.6); WHITE BLOOD COUNT 9.5 K/mm3 (4.0-10.0)
[2020-09-27 07:31] LABS: ALBUMIN 2.1 g/dl (3.4-5.0); BLOOD UREA NITROGEN 11.3 mg/dL (7-18); CALCIUM 7.8 mg/dL (8.5-10.1); MAGNESIUM 1.9 mg/dL (1.8-2.4)
[2020-09-27 07:34] LABS: CREATININE 0.5 mg/dL (0.55-1.3)
[2020-09-27 07:35] LABS: PHOSPHOROUS 3.5 mg/dL (2.5-4.9)
[2020-09-27 07:36] LABS: BILIRUBIN,TOTAL 0.5 mg/dL (0.2-1); TOT PROT 4.8 g/dl (6.4-8.2)
[2020-09-27] MEDS: METOPROLOL TARTRATE 25 MG TABLET (FP) PO SCH ×2 (09:27→21:44)
[2020-09-27] MEDS: APIXABAN 5 MG TABLET PO SCH ×2 (09:27→21:58)
[2020-09-27] MEDS: BUDESONIDE/FORMETEROL FUMARATE 80/4.5 mcg INHALER IH SCH ×2 (09:27→21:44)
[2020-09-27] MEDS: AMIODARONE HCL 200 MG TABLET PO SCH ×2 (09:27→21:43)
[2020-09-27] MEDS: MUPIROCIN 2% TOPICAL OINTMENT FOR DECOLONIZATION NS SCH ×2 (09:28→21:43)
[2020-09-27] MEDS: PANTOPRAZOLE 20 MG TABLET PO SCH (11:12)
[2020-09-27] MEDS: DEXAMETHASONE SOD PHOSPHATE 4 MG/1 ML VIAL IVPUSH SCH ×2 (11:12→21:44)
[2020-09-27] MEDS ORDERED: SODIUM CHLORIDE 0.9% 500 ML INFUS.BAG IV ONE (11:51)
[2020-09-27] MEDS: NOREPINEPHRINE BITARTRATE 8,000 MCG/500 ML BAG IVPB SCH (12:29)
[2020-09-27] MEDS ORDERED: PT OWN MED DRAWER 7, Y5N ONE (13:44)
[2020-09-27] MEDS: FLUTICASONE PROP 0.05% 16 GM NASAL SPRAY NS SCH (13:46)
[2020-09-27] MEDS: ROSUVASTATIN CA 10 MG TABLET PO SCH (21:43)
[2020-09-27] MEDS: CHLORHEXIDINE GLUCONATE 4% CLEANSER FOR DECOLONIZATION TP SCH (21:44)
[2020-09-27] MEDS: FLUDROCORTISONE ACETATE 0.1 MG TABLET (FP) PO SCH (21:47)
[2020-09-28] MEDS ORDERED: MEROPENEM 1 GM VIAL (RESTRICTED TO ID) IVPB ONE ×3 (02:27→16:48)
[2020-09-28] MEDS ORDERED: DEXTROSE 5%-WATER 100 ML IVPB ONE ×3 (02:27→16:49)
[2020-09-28] MEDS: MEROPENEM 1 GM in DEXTROSE 5%-WATER 100 ML IVPB SCH ×3 (02:28→17:00)
[2020-09-28] MEDS: INSULIN SLIDING SCALE (NOVOLOG) 1 VIAL SQ SCH ×4 (06:06→22:48)
[2020-09-28 07:16] LABS: BASO % 0.2 % (0-2.0); HEMATOCRIT 29.5 % (32.4-45.2); HEMOGLOBIN 9.3 GM/dL (10.7-15.3); LYMPH % 12.2 % (8-40); MCH 22.8 pg (25.7-33.7); MCHC 31.4 g/dl (32.0-36.0); MEAN CELL VOLUME 72.8 fl (80-96); MEAN PLT VOLUME 7.4 fl (7.5-11.1); MONO % 4.4 % (3.8-10.2); NEUT % 83.2 % (42.8-82.8); PLATELET COUNT 296 K/MM3 (134-434); RBC 4.05 M/mm3 (3.60-5.2); RDW 15.6 % (11.6-15.6)
[2020-09-28 07:26] LABS: ALBUMIN 2.3 g/dl (3.4-5.0); CALCIUM 8.1 mg/dL (8.5-10.1)
[2020-09-28 07:27] LABS: BLOOD UREA NITROGEN 14.4 mg/dL (7-18)
[2020-09-28 07:30] LABS: CREATININE 0.7 mg/dL (0.55-1.3); PHOSPHOROUS 3.6 mg/dL (2.5-4.9)
[2020-09-28 07:31] LABS: BILIRUBIN,TOTAL 0.5 mg/dL (0.2-1); TOT PROT 5.2 g/dl (6.4-8.2)
[2020-09-28] MEDS ORDERED: PT OWN MED DRAWER 7, Y5N ONE (08:59)
[2020-09-28] MEDS: METOPROLOL TARTRATE 25 MG TABLET (FP) PO SCH ×2 (09:02→22:35)
[2020-09-28] MEDS: DEXAMETHASONE SOD PHOSPHATE 4 MG/1 ML VIAL IVPUSH SCH ×2 (09:02→22:35)
[2020-09-28] MEDS: PANTOPRAZOLE 20 MG TABLET PO SCH (09:02)
[2020-09-28] MEDS: APIXABAN 5 MG TABLET PO SCH ×2 (09:02→22:35)
[2020-09-28] MEDS: AMIODARONE HCL 200 MG TABLET PO SCH ×2 (09:02→22:35)
[2020-09-28] MEDS: MUPIROCIN 2% TOPICAL OINTMENT FOR DECOLONIZATION NS SCH ×2 (09:03→22:34)
[2020-09-28] MEDS: BUDESONIDE/FORMETEROL FUMARATE 80/4.5 mcg INHALER IH SCH ×2 (09:03→22:36)
[2020-09-28] MEDS: FLUTICASONE PROP 0.05% 16 GM NASAL SPRAY NS SCH (09:03)
[2020-09-28] MEDS: guaiFENesin 200 MG/10 ML 10 ML UNIT-DOSE CUPS PO PRN ×2 (15:15→23:00)
[2020-09-28] MEDS: ROSUVASTATIN CA 10 MG TABLET PO SCH (22:35)
[2020-09-28] MEDS: CHLORHEXIDINE GLUCONATE 4% CLEANSER FOR DECOLONIZATION TP SCH (22:35)
[2020-09-28] MEDS: FLUDROCORTISONE ACETATE 0.1 MG TABLET (FP) PO SCH (22:35)
[2020-09-28] MEDS: NOREPINEPHRINE BITARTRATE 8,000 MCG/500 ML BAG IVPB SCH (22:50)
[2020-09-29] MEDS ORDERED: DEXTROSE 5%-WATER 100 ML IVPB ONE ×3 (02:18→16:35)
[2020-09-29] MEDS ORDERED: MEROPENEM 1 GM VIAL (RESTRICTED TO ID) IVPB ONE ×3 (02:18→16:35)
[2020-09-29] MEDS: MEROPENEM 1 GM in DEXTROSE 5%-WATER 100 ML IVPB SCH ×3 (02:22→17:04)
[2020-09-29] MEDS: INSULIN SLIDING SCALE (NOVOLOG) 1 VIAL SQ SCH ×5 (06:08→23:06)
[2020-09-29 07:09] LABS: HEMATOCRIT 28.4 % (32.4-45.2); HEMOGLOBIN 9.3 GM/dL (10.7-15.3); MCH 23.6 pg (25.7-33.7); MCHC 32.7 g/dl (32.0-36.0); MEAN CELL VOLUME 72.3 fl (80-96); MEAN PLT VOLUME 7.3 fl (7.5-11.1); PLATELET COUNT 380 K/MM3 (134-434); RBC 3.93 M/mm3 (3.60-5.2); RDW 15.6 % (11.6-15.6); WHITE BLOOD COUNT 11.9 K/mm3 (4.0-10.0)
[2020-09-29 07:24] LABS: CALCIUM 8.4 mg/dL (8.5-10.1)
[2020-09-29 07:25] LABS: ALBUMIN 2.4 g/dl (3.4-5.0); BLOOD UREA NITROGEN 17.6 mg/dL (7-18)
[2020-09-29 07:28] LABS: CREATININE 0.6 mg/dL (0.55-1.3)
[2020-09-29 07:29] LABS: BILIRUBIN,TOTAL 0.5 mg/dL (0.2-1)
[2020-09-29 07:30] LABS: TOT PROT 5.3 g/dl (6.4-8.2)
[2020-09-29] MEDS: NOREPINEPHRINE BITARTRATE 8,000 MCG/500 ML BAG IVPB SCH (07:45)
[2020-09-29] MEDS: DEXAMETHASONE SOD PHOSPHATE 4 MG/1 ML VIAL IVPUSH SCH ×2 (09:18→21:56)
[2020-09-29] MEDS: PANTOPRAZOLE 20 MG TABLET PO SCH (09:18)
[2020-09-29] MEDS: METOPROLOL TARTRATE 25 MG TABLET (FP) PO SCH ×3 (09:18→21:57)
[2020-09-29] MEDS: FLUTICASONE PROP 0.05% 16 GM NASAL SPRAY NS SCH (09:18)
[2020-09-29] MEDS: APIXABAN 5 MG TABLET PO SCH ×2 (09:18→21:56)
[2020-09-29] MEDS: AMIODARONE HCL 200 MG TABLET PO SCH ×2 (09:18→21:56)
[2020-09-29] MEDS: BUDESONIDE/FORMETEROL FUMARATE 80/4.5 mcg INHALER IH SCH ×2 (09:19→21:57)
[2020-09-29] MEDS ORDERED: INSULIN (NOVOLOG) ASPART 100 UNITS/ML 10ML VIAL ONE (11:18)
[2020-09-29] MEDS ORDERED: ZOLPIDEM TARTRATE 5 MG TABLET PO PRN (16:00)
[2020-09-29] MEDS ORDERED: FUROSEMIDE 40 MG/4 ML INJECTABLE VIAL IVPUSH ONE (18:49)
[2020-09-29] MEDS: ROSUVASTATIN CA 10 MG TABLET PO SCH (21:56)
[2020-09-29] MEDS: CHLORHEXIDINE GLUCONATE 4% CLEANSER FOR DECOLONIZATION TP SCH (21:57)
[2020-09-29] MEDS: FLUDROCORTISONE ACETATE 0.1 MG TABLET (FP) PO SCH (21:57)
[2020-09-30] MEDS ORDERED: MEROPENEM 1 GM VIAL (RESTRICTED TO ID) IVPB ONE ×3 (01:03→16:48)
[2020-09-30] MEDS ORDERED: DEXTROSE 5%-WATER 100 ML IVPB ONE ×3 (01:03→16:48)
[2020-09-30] MEDS: MEROPENEM 1 GM in DEXTROSE 5%-WATER 100 ML IVPB SCH ×3 (01:04→17:46)
[2020-09-30] MEDS: INSULIN SLIDING SCALE (NOVOLOG) 1 VIAL SQ SCH ×4 (06:43→23:48)
[2020-09-30] MEDS: METOPROLOL TARTRATE 25 MG TABLET (FP) PO SCH ×4 (06:43→23:45)
[2020-09-30 07:06] LABS: BASO % 0.1 % (0-2.0); EOS % 0.1 % (0-4.5); HEMATOCRIT 28.2 % (32.4-45.2); HEMOGLOBIN 9.2 GM/dL (10.7-15.3); LYMPH % 13.3 % (8-40); MCH 23.7 pg (25.7-33.7); MCHC 32.5 g/dl (32.0-36.0); MEAN CELL VOLUME 72.8 fl (80-96); MEAN PLT VOLUME 7.4 fl (7.5-11.1); MONO % 5.9 % (3.8-10.2); NEUT % 80.6 % (42.8-82.8); PLATELET COUNT 276 K/MM3 (134-434); RBC 3.88 M/mm3 (3.60-5.2); RDW 15.7 % (11.6-15.6); WHITE BLOOD COUNT 7.2 K/mm3 (4.0-10.0)
[2020-09-30 07:33] LABS: BLOOD UREA NITROGEN 23.7 mg/dL (7-18)
[2020-09-30 07:34] LABS: ALBUMIN 2.5 g/dl (3.4-5.0); CALCIUM 8.1 mg/dL (8.5-10.1)
[2020-09-30 07:35] LABS: MAGNESIUM 2.2 mg/dL (1.8-2.4)
[2020-09-30 07:37] LABS: BILIRUBIN,TOTAL 0.4 mg/dL (0.2-1); CREATININE 0.7 mg/dL (0.55-1.3); TOT PROT 5.1 g/dl (6.4-8.2)
[2020-09-30 07:38] LABS: PHOSPHOROUS 5.1 mg/dL (2.5-4.9)
[2020-09-30] MEDS: DEXAMETHASONE SOD PHOSPHATE 4 MG/1 ML VIAL IVPUSH SCH (10:22)
[2020-09-30] MEDS: PANTOPRAZOLE 20 MG TABLET PO SCH (10:22)
[2020-09-30] MEDS: AMIODARONE HCL 200 MG TABLET PO SCH (10:22)
[2020-09-30] MEDS: APIXABAN 5 MG TABLET PO SCH ×2 (10:22→23:48)
[2020-09-30 10:23] LABS: ANISOCYTOSIS 1+; MACROCYTOSIS 0; PLATELET ESTIMATE NORMAL
[2020-09-30] MEDS: FLUTICASONE PROP 0.05% 16 GM NASAL SPRAY NS SCH (10:32)
[2020-09-30] MEDS: BUDESONIDE/FORMETEROL FUMARATE 80/4.5 mcg INHALER IH SCH ×2 (10:33→22:45)
[2020-09-30] MEDS: DEXAMETHASONE 4 MG TABLET (FP) PO SCH (10:59)
[2020-09-30] MEDS: NOREPINEPHRINE BITARTRATE 8,000 MCG/500 ML BAG IVPB SCH (17:46)
[2020-09-30] MEDS ORDERED: ROSUVASTATIN CA 10 MG TABLET PO SCH (22:00)
[2020-09-30] MEDS ORDERED: ONDANSETRON 4 MG/2 ML VIAL IVPUSH PRN (22:18)
[2020-09-30] MEDS ORDERED: ACETAMINOPHEN 325 MG TABLET (FP) PO PRN (22:18)
[2020-09-30] MEDS ORDERED: ALBUTEROL SO4 HFA INHALER IH PRN (22:18)
[2020-09-30] MEDS: ZOLPIDEM TARTRATE 5 MG TABLET PO PRN (23:45)
[2020-09-30] MEDS: guaiFENesin 200 MG/10 ML 10 ML UNIT-DOSE CUPS PO PRN (23:46)
[2020-09-30] MEDS: ROSUVASTATIN CA 10 MG TABLET PO SCH (23:48)
[2020-10-01] MEDS: FLUDROCORTISONE ACETATE 0.1 MG TABLET (FP) PO SCH ×3 (00:01→21:42)
[2020-10-01] MEDS: CHLORHEXIDINE GLUCONATE 4% CLEANSER FOR DECOLONIZATION TP SCH (00:48)
[2020-10-01] MEDS ORDERED: MEROPENEM 1 GM VIAL (RESTRICTED TO ID) IVPB ONE ×3 (01:13→17:11)
[2020-10-01] MEDS ORDERED: DEXTROSE 5%-WATER 100 ML IVPB ONE ×3 (01:13→17:12)
[2020-10-01] MEDS: MEROPENEM 1 GM in DEXTROSE 5%-WATER 100 ML IVPB SCH ×3 (01:24→17:19)
[2020-10-01] MEDS: INSULIN SLIDING SCALE (NOVOLOG) 1 VIAL SQ SCH ×4 (06:35→21:43)
[2020-10-01] MEDS: METOPROLOL TARTRATE 25 MG TABLET (FP) PO SCH (06:36)
[2020-10-01 07:39] LABS: HEMATOCRIT 29.1 % (32.4-45.2); HEMOGLOBIN 9.5 GM/dL (10.7-15.3); MCH 23.8 pg (25.7-33.7); MCHC 32.7 g/dl (32.0-36.0); MEAN CELL VOLUME 72.9 fl (80-96); MEAN PLT VOLUME 7.1 fl (7.5-11.1); PLATELET COUNT 310 K/MM3 (134-434); RBC 3.99 M/mm3 (3.60-5.2); RDW 15.5 % (11.6-15.6); WHITE BLOOD COUNT 8.4 K/mm3 (4.0-10.0)
[2020-10-01 08:06] LABS: ALBUMIN 2.6 g/dl (3.4-5.0)
[2020-10-01 08:07] LABS: BLOOD UREA NITROGEN 23.9 mg/dL (7-18)
[2020-10-01 08:09] LABS: CREATININE 0.7 mg/dL (0.55-1.3)
[2020-10-01 08:11] LABS: BILIRUBIN,TOTAL 0.8 mg/dL (0.2-1); TOT PROT 5.4 g/dl (6.4-8.2)
[2020-10-01] MEDS ORDERED: PT OWN MED DRAWER 7, Y5N ONE ×3 (09:21→21:21)
[2020-10-01] MEDS: APIXABAN 5 MG TABLET PO SCH ×2 (09:35→21:42)
[2020-10-01] MEDS: METOPROLOL TARTRATE 50 MG TABLET (FP) PO SCH ×2 (09:35→21:42)
[2020-10-01] MEDS: DEXAMETHASONE 4 MG TABLET (FP) PO SCH ×2 (09:36→21:41)
[2020-10-01] MEDS: PANTOPRAZOLE 40 MG TABLET PO SCH (09:36)
[2020-10-01] MEDS: FLUTICASONE PROP 0.05% 16 GM NASAL SPRAY NS SCH (09:49)
[2020-10-01] MEDS: BUDESONIDE/FORMETEROL FUMARATE 80/4.5 mcg INHALER IH SCH ×2 (09:49→22:29)
[2020-10-01] MEDS ORDERED: FUROSEMIDE 20 MG TABLET (FP) PO SCH (10:00)
[2020-10-01] MEDS ORDERED: APIXABAN 5 MG TABLET PO SCH (10:00)
[2020-10-01] MEDS ORDERED: PANTOPRAZOLE 20 MG TABLET PO SCH (10:00)
[2020-10-01] MEDS: ZOLPIDEM TARTRATE 5 MG TABLET PO PRN (21:57)
[2020-10-01] MEDS: guaiFENesin 200 MG/10 ML 10 ML UNIT-DOSE CUPS PO PRN (21:57)
[2020-10-01] MEDS ORDERED: ROSUVASTATIN CA 10 MG TABLET PO SCH (22:00)
[2020-10-01] MEDS ORDERED: ROSUVASTATIN CA 5 MG TABLET PO SCH (22:00)
[2020-10-01] MEDS ORDERED: FLUDROCORTISONE ACETATE 0.1 MG TABLET (FP) PO SCH (22:00)
[2020-10-01] MEDS ORDERED: CHLORHEXIDINE GLUCONATE 4% CLEANSER FOR DECOLONIZATION TP SCH (22:00)
[2020-10-02] MEDS ORDERED: DEXTROSE 5%-WATER 100 ML IVPB ONE ×3 (01:02→17:07)
[2020-10-02] MEDS ORDERED: MEROPENEM 1 GM VIAL (RESTRICTED TO ID) IVPB ONE ×3 (01:02→17:07)
[2020-10-02] MEDS: MEROPENEM 1 GM in DEXTROSE 5%-WATER 100 ML IVPB SCH ×3 (01:31→17:11)
[2020-10-02] MEDS: INSULIN SLIDING SCALE (NOVOLOG) 1 VIAL SQ SCH ×4 (06:31→21:55)
[2020-10-02] MEDS ORDERED: PT OWN MED DRAWER 7, Y5N ONE ×2 (09:45→21:11)
[2020-10-02] MEDS: METOPROLOL TARTRATE 50 MG TABLET (FP) PO SCH ×2 (09:50→21:55)
[2020-10-02] MEDS: DEXAMETHASONE 4 MG TABLET (FP) PO SCH ×2 (09:50→21:54)
[2020-10-02] MEDS: APIXABAN 5 MG TABLET PO SCH ×2 (09:50→21:55)
[2020-10-02] MEDS: FUROSEMIDE 40 MG TABLET (FP) PO SCH (09:50)
[2020-10-02] MEDS: PANTOPRAZOLE 40 MG TABLET PO SCH (09:50)
[2020-10-02] MEDS: FLUTICASONE PROP 0.05% 16 GM NASAL SPRAY NS SCH (09:51)
[2020-10-02] MEDS: BUDESONIDE/FORMETEROL FUMARATE 80/4.5 mcg INHALER IH SCH ×2 (09:51→21:56)
[2020-10-02] MEDS ORDERED: HYDROCORTISONE 1% TOPICAL CREAM 30 GM TUBE TP PRN (21:35)
[2020-10-02] MEDS: ZOLPIDEM TARTRATE 5 MG TABLET PO PRN (21:54)
[2020-10-02] MEDS: FLUDROCORTISONE ACETATE 0.1 MG TABLET (FP) PO SCH (21:54)
[2020-10-02] MEDS: ROSUVASTATIN CA 10 MG TABLET PO SCH (21:55)
[2020-10-03] MEDS ORDERED: MEROPENEM 1 GM VIAL (RESTRICTED TO ID) IVPB ONE (02:15)
[2020-10-03] MEDS ORDERED: DEXTROSE 5%-WATER 100 ML IVPB ONE (02:15)
[2020-10-03] MEDS: MEROPENEM 1 GM in DEXTROSE 5%-WATER 100 ML IVPB SCH (02:19)
[2020-10-03] MEDS: INSULIN SLIDING SCALE (NOVOLOG) 1 VIAL SQ SCH ×4 (06:38→21:30)
[2020-10-03 07:38] LABS: BASO % 0.2 % (0-2.0); HEMATOCRIT 30.9 % (32.4-45.2); HEMOGLOBIN 10.1 GM/dL (10.7-15.3); LYMPH % 13.8 % (8-40); MCH 24.3 pg (25.7-33.7); MCHC 32.6 g/dl (32.0-36.0); MEAN CELL VOLUME 74.6 fl (80-96); MEAN PLT VOLUME 7.3 fl (7.5-11.1); MONO % 4.9 % (3.8-10.2); NEUT % 81.1 % (42.8-82.8); PLATELET COUNT 312 K/MM3 (134-434); RBC 4.14 M/mm3 (3.60-5.2); RDW 15.9 % (11.6-15.6); WHITE BLOOD COUNT 6.9 K/mm3 (4.0-10.0)
[2020-10-03 08:06] LABS: ALBUMIN 2.5 g/dl (3.4-5.0); BLOOD UREA NITROGEN 21.9 mg/dL (7-18); CALCIUM 8.2 mg/dL (8.5-10.1)
[2020-10-03 08:10] LABS: CREATININE 0.6 mg/dL (0.55-1.3)
[2020-10-03 08:11] LABS: BILIRUBIN,TOTAL 0.5 mg/dL (0.2-1); TOT PROT 5.2 g/dl (6.4-8.2)
[2020-10-03] MEDS ORDERED: PT OWN MED DRAWER 7, Y5N ONE ×2 (10:20→21:23)
[2020-10-03] MEDS: DEXAMETHASONE 4 MG TABLET (FP) PO SCH ×2 (10:22→21:30)
[2020-10-03] MEDS: FUROSEMIDE 40 MG TABLET (FP) PO SCH (10:22)
[2020-10-03] MEDS: METOPROLOL TARTRATE 50 MG TABLET (FP) PO SCH ×2 (10:22→21:30)
[2020-10-03] MEDS: PANTOPRAZOLE 40 MG TABLET PO SCH (10:22)
[2020-10-03] MEDS: APIXABAN 5 MG TABLET PO SCH ×2 (10:22→21:30)
[2020-10-03] MEDS: FLUTICASONE PROP 0.05% 16 GM NASAL SPRAY NS SCH (10:22)
[2020-10-03] MEDS: BUDESONIDE/FORMETEROL FUMARATE 80/4.5 mcg INHALER IH SCH ×2 (10:23→21:30)
[2020-10-03 10:59] LABS: ANISOCYTOSIS 1+; MACROCYTOSIS 0; OVALOCYTE 1+; PLATELET ESTIMATE NORMAL
[2020-10-03] MEDS: CLOTRIMAZOLE/BETAMET DIPROP 15 GM TUBE TP SCH ×2 (12:55→21:30)
[2020-10-03] MEDS: FLUDROCORTISONE ACETATE 0.1 MG TABLET (FP) PO SCH (21:30)
[2020-10-04] MEDS: ZOLPIDEM TARTRATE 5 MG TABLET PO PRN (00:06)
[2020-10-04] MEDS: ROSUVASTATIN CA 10 MG TABLET PO SCH (00:06)
[2020-10-04] MEDS: INSULIN SLIDING SCALE (NOVOLOG) 1 VIAL SQ SCH ×2 (07:01→11:14)
[2020-10-04 08:59] VITALS: TEMP 97.7
[2020-10-04] MEDS: APIXABAN 5 MG TABLET PO SCH (09:02)
[2020-10-04] MEDS: PANTOPRAZOLE 40 MG TABLET PO SCH (09:02)
[2020-10-04] MEDS: METOPROLOL TARTRATE 50 MG TABLET (FP) PO SCH (09:02)
[2020-10-04] MEDS: DEXAMETHASONE 4 MG TABLET (FP) PO SCH (09:02)
[2020-10-04] MEDS: FUROSEMIDE 40 MG TABLET (FP) PO SCH (09:02)
[2020-10-04] MEDS: FLUTICASONE PROP 0.05% 16 GM NASAL SPRAY NS SCH (09:04)
[2020-10-04] MEDS ORDERED: MOMETASONE FUROATE 110 MCG/IH INHALER IH SCH (10:00)
[2020-10-04] MEDS ORDERED: LORATADINE 10 MG TABLET PO SCH (10:00)
[2020-10-04] MEDS ORDERED: TIOTROPIUM BROMIDE 2.5 MCG (SPIRIVA) RESPIMAT INHALER IH SCH (10:00)
[2020-10-04] MEDS: CLOTRIMAZOLE/BETAMET DIPROP 15 GM TUBE TP SCH (11:16)
[2020-10-04 13:58] VITALS: BP 136/67; PULSE 104
[2020-10-04] MEDS ORDERED: MONTELUKAST NA 10 MG TABLET PO SCH (22:00)
[2021-01-01 12:07] LABS: RENIN ACTIVITY(PRA) 2.146 ng/mL/hr (0.167-5.380)
== END 2020-10-04 15:14 | disposition home or self-care (01) | DRG 871 ==
LOC: JER 14:15 → JERBED 14:46 → JICU 23:48 → J4S 09-30 22:17
PROVIDERS: ADMIT Internal Medicine; ATTEND Family Medicine
DX: A41.89 Other specified sepsis (principal); R65.21 Severe sepsis with septic shock; I24.8 Other forms of acute ischemic heart disease; I50.32 Chronic diastolic (congestive) heart failure; K41.30 Unilateral femoral hernia, with obstruction, without gangrene, not specified as recurrent; E87.1 Hypo-osmolality and hyponatremia; N39.0 Urinary tract infection, site not specified; E87.2 Acidosis; I43 Cardiomyopathy in diseases classified elsewhere; R50.9 Fever, unspecified; K80.20 Calculus of gallbladder without cholecystitis without obstruction; E78.5 Hyperlipidemia, unspecified; I11.0 Hypertensive heart disease with heart failure; R74.01 Elevation of levels of liver transaminase levels; E27.9 Disorder of adrenal gland, unspecified; R30.0 Dysuria; D64.9 Anemia, unspecified; D72.829 Elevated white blood cell count, unspecified; I25.10 Atherosclerotic heart disease of native coronary artery without angina pectoris; E87.6 Hypokalemia; E66.9 Obesity, unspecified; Z68.36 Body mass index [BMI] 36.0-36.9, adult; K21.9 Gastro-esophageal reflux disease without esophagitis; I48.0 Paroxysmal atrial fibrillation; R94.5 Abnormal results of liver function studies; Q63.1 Lobulated, fused and horseshoe kidney; E11.9 Type 2 diabetes mellitus without complications; Z88.0 Allergy status to penicillin
CPT/HCPCS: 36415; 71045-TC-FY; 71250-TC; 71275-TC; 74176-TC; 80053; 81003; 82088; 82436; 82533; 82550; 82728; 82803; 82962; 83605; 83615; 83735; 83880; 83930; 83935; 84100; 84133; 84146; 84244; 84300; 84443; 84484; 85025; 85027; 85379; 85610; 85730; 86140; 86769; 87040; 87086; 87804; 87899; 93005; 93010; 93306-TC; 93970-TC; 94010; 97116-GP; 97161-GP; 99285-25; C9803; J0131; J0282; J0834; Q9967; U0003

== ENCOUNTER 2021-06-22 15:25 | Inpatient (IN) | payer OTHER ==
[2021-06-22] MEDS ORDERED: PROCHLORPERAZINE MALEATE 5 MG TABLET PO ONE ×2 (16:35→16:56)
[2021-06-22] MEDS ORDERED: ACETAMINOPHEN 1000 MG/100 ML VIAL (NON FORMULARY) IVPB ONE (16:59)
[2021-06-22] MEDS ORDERED: PROCHLORPERAZINE MALEATE 5 MG TABLET ONE (17:08)
[2021-06-22] MEDS ORDERED: ACETAMINOPHEN INJECTION 100 ML IVPB ONE (17:38)
[2021-06-22 17:57] LABS: HEMATOCRIT 37.2 % (32.4-45.2); HEMOGLOBIN 12.3 GM/dL (10.7-15.3); MCH 23.5 pg (25.7-33.7); MCHC 33.2 g/dl (32.0-36.0); MEAN PLT VOLUME 8.5 fl (7.5-11.1); PLATELET COUNT 137 10^3/uL (134-434); RBC 5.24 M/mm3 (3.60-5.2); RDW 15.7 % (11.6-15.6); WHITE BLOOD COUNT 8.3 K/mm3 (4.0-10.0)
[2021-06-22 17:59] LABS: BASO % 0.4 % (0-2.0); EOS % 0.3 % (0-4.5); LYMPH % 3.3 % (8-40); MONO % 3.3 % (3.8-10.2); NEUT % 92.7 % (42.8-82.8)
[2021-06-22 18:08] LABS: ALBUMIN 3.6 g/dl (3.4-5.0); BLOOD UREA NITROGEN 14.4 mg/dL (7-18); CALCIUM 8.6 mg/dL (8.5-10.1); LIPASE 328 U/L (73-393); MAGNESIUM 1.6 mg/dL (1.8-2.4)
[2021-06-22 18:11] LABS: PHOSPHOROUS 3.1 mg/dL (2.5-4.9)
[2021-06-22 18:12] LABS: CREATININE 0.7 mg/dL (0.55-1.3)
[2021-06-22 18:13] LABS: BILIRUBIN,TOTAL 0.5 mg/dL (0.2-1); TOT PROT 6.1 g/dl (6.4-8.2)
[2021-06-22] MEDS ORDERED: ASPIRIN 81 MG CHEWABLE TABLETS PO ONE (18:23)
[2021-06-22 18:33] LABS: ANISOCYTOSIS 1+; MACROCYTOSIS 0; OVALOCYTE 1+; PLATELET ESTIMATE DECREASED
[2021-06-22] MEDS ORDERED: ASPIRIN 81 MG CHEWABLE TABLETS ONE (18:44)
[2021-06-22] MEDS ORDERED: ACETAMINOPHEN 325 MG TABLET (FP) PO PRN ×2 (20:30→21:08)
[2021-06-22] MEDS ORDERED: ALBUTEROL SO4 HFA INHALER IH PRN (20:30)
[2021-06-22] MEDS ORDERED: MAGNESIUM SULFATE IN WATER 2 GM/50 ML IVPB IVPB ONE ×2 (21:04→22:24)
[2021-06-22 21:17] LABS: EPI CELLS 6 /uL (0-25.1); HYALINE CASTS 0 /uL (0-3.1); PH,URINE 5.5 (5.0-8.0); URINE APPEARANCE CLEAR; URINE BACTERIA 13 /uL (0-1359); URINE BILIRUBIN NEGATIVE (NEGATIVE); URINE COLOR YELLOW; URINE GLUCOSE (UA) NEGATIVE (NEGATIVE); URINE KETONE NEGATIVE (NEGATIVE); URINE LEUK ESTERASE 1+ (NEGATIVE); URINE NITRITE NEGATIVE (NEGATIVE); URINE PROTEIN NEGATIVE (NEGATIVE); URINE RBC 25 /uL (0-23.9); URINE UROBILINOGEN 0.2 mg/dL (0.2-1.0); URINE WBC 39 /uL (0-25.8)
[2021-06-22] MEDS ORDERED: SULFAMETHOXAZOLE/TRIMETHOPRIM 800MG/160MG D.S. TABLET PO SCH (22:00)
[2021-06-22] MEDS ORDERED: INSULIN SLIDING SCALE (NOVOLOG) 1 VIAL SQ ONE (22:24)
[2021-06-22] MEDS ORDERED: APIXABAN 5 MG TABLET ONE (22:24)
[2021-06-22] MEDS ORDERED: SULFAMETHOXAZOLE/TRIMETHOPRIM 800MG/160MG D.S. TABLET ONE (22:24)
[2021-06-22 22:25] LABS: INR 1.28 (0.83-1.09); PROTHROMBIN TIME (PATIENT) 15.4 SEC (9.7-13.0)
[2021-06-22 22:27] LABS: ACTIVATED PTT 34.1 SECONDS (25.2-36.5)
[2021-06-22] MEDS: APIXABAN 5 MG TABLET PO SCH (22:39)
[2021-06-22] MEDS: INSULIN SLIDING SCALE (NOVOLOG) 1 VIAL SQ SCH (22:39)
[2021-06-22] MEDS ORDERED: MONTELUKAST NA 10 MG TABLET ONE (22:41)
[2021-06-22] MEDS: MONTELUKAST NA 10 MG TABLET PO SCH (22:43)
[2021-06-22] MEDS ORDERED: ONDANSETRON 4 MG/2 ML VIAL IVPUSH STA (23:01)
[2021-06-22] MEDS ORDERED: PROCHLORPERAZINE MALEATE 5 MG TABLET PO PRN (23:11)
[2021-06-23 03:05] VITALS: BMI 35.9
[2021-06-23] MEDS: INSULIN SLIDING SCALE (NOVOLOG) 1 VIAL SQ SCH ×4 (06:15→21:02)
[2021-06-23] MEDS ORDERED: MEROPENEM 1 GM in DEXTROSE 5%-WATER 100 ML IVPB ONE (07:46)
[2021-06-23 08:44] LABS: HEMATOCRIT 33.5 % (32.4-45.2); MCH 23.3 pg (25.7-33.7); MCHC 32.8 g/dl (32.0-36.0); MEAN CELL VOLUME 71.1 fl (80-96); MEAN PLT VOLUME 8.9 fl (7.5-11.1); PLATELET COUNT 152 10^3/uL (134-434); RBC 4.71 M/mm3 (3.60-5.2); RDW 15.8 % (11.6-15.6); WHITE BLOOD COUNT 11.8 K/mm3 (4.0-10.0)
[2021-06-23] MEDS ORDERED: MEROPENEM 1 GM VIAL (RESTRICTED TO ID) IVPB ONE (09:04)
[2021-06-23] MEDS ORDERED: DEXTROSE 5%-WATER 100 ML IVPB ONE (09:04)
[2021-06-23 09:11] LABS: CHLORIDE 102 mmol/L (98-107); SODIUM 136 mmol/L (136-145)
[2021-06-23] MEDS: APIXABAN 5 MG TABLET PO SCH (09:13)
[2021-06-23] MEDS: ROSUVASTATIN CA 10 MG TABLET (FP) PO SCH (09:13)
[2021-06-23] MEDS: PANTOPRAZOLE 40 MG TABLET PO SCH (09:14)
[2021-06-23 09:25] LABS: BLOOD UREA NITROGEN 15.1 mg/dL (7-18)
[2021-06-23 09:26] LABS: CALCIUM 8.2 mg/dL (8.5-10.1)
[2021-06-23 09:29] LABS: ANION GAP 8 MMOL/L (8-16); CO2 26 mmol/L (21-32); CREATININE 0.9 mg/dL (0.55-1.3); GLUCOSE,RANDOM 99 mg/dL (74-106); MAGNESIUM 2.1 mg/dL (1.8-2.4)
[2021-06-23] MEDS ORDERED: NEBIVOLOL 10 MG TABLET (FP) PO SCH (10:00)
[2021-06-23] MEDS ORDERED: FUROSEMIDE 20 MG TABLET (FP) PO SCH (10:00)
[2021-06-23] MEDS ORDERED: HYDROCORTISONE SOD SUCCINATE 100 MG/2 ML VIAL IVPB ONE (10:05)
[2021-06-23 10:55] LABS: LACTIC ACID 3.2 mmol/L (0.4-2.0)
[2021-06-23 11:23] LABS: BILIRUBIN,DIRECT 0.4 mg/dL (0.0-0.2); SGOT/AST 28 U/L (15-37); SGPT/ALT 31 U/L (13-61)
[2021-06-23] MEDS: POTASSIUM CHLORIDE 10 MEQ in SODIUM CHLORIDE 0.45% 1,000 ML IVPB SCH ×2 (11:23→20:41)
[2021-06-23 11:25] LABS: BILIRUBIN,TOTAL 0.9 mg/dL (0.2-1); TOT PROT 5.2 g/dl (6.4-8.2)
[2021-06-23 11:26] LABS: ALK PHOS 57 U/L (45-117)
[2021-06-23 11:27] LABS: ALBUMIN 2.9 g/dl (3.4-5.0)
[2021-06-23] MEDS: METOPROLOL TARTRATE 25 MG TABLET (FP) PO SCH ×2 (11:32→21:02)
[2021-06-23] MEDS: TIOTROPIUM BROMIDE 2.5 MCG (SPIRIVA) RESPIMAT INHALER IH SCH (11:58)
[2021-06-23 13:13] LABS: ANISOCYTOSIS 1+; MACROCYTOSIS 0; OVALOCYTE 1+; PLATELET ESTIMATE DECREASED
[2021-06-23] MEDS ORDERED: LORazepam 2 MG/ML SDV VIAL IVPUSH ONE (13:15)
[2021-06-23] MEDS: ELECTROLYTE-148 SOLN 1,000 ML IV SCH (14:46)
[2021-06-23] MEDS ORDERED: PT OWN MED DRAWER 7, Y5N ONE (15:23)
[2021-06-23] MEDS: ERTAPENEM SODIUM 1 GM in SODIUM CHLORIDE 50 ML IVPB SCH (15:43)
[2021-06-23] MEDS: ENOXAPARIN NA (PORCINE) 80 MG/0.8 ML DISP.SYRIN SQ SCH (21:02)
[2021-06-23] MEDS: FLUDROCORTISONE ACETATE 0.1 MG TABLET (FP) PO SCH (21:02)
[2021-06-23] MEDS: MONTELUKAST NA 10 MG TABLET PO SCH (21:02)
[2021-06-23] MEDS ORDERED: FLUDROCORTISONE ACETATE 0.1 MG TABLET (FP) PO SCH (22:00)
[2021-06-24] MEDS: ELECTROLYTE-148 SOLN 1,000 ML IV SCH (05:54)
[2021-06-24] MEDS: INSULIN SLIDING SCALE (NOVOLOG) 1 VIAL SQ SCH ×4 (06:02→21:53)
[2021-06-24] MEDS ORDERED: INSULIN (NOVOLOG) ASPART 100 UNITS/ML 10ML VIAL ONE (06:48)
[2021-06-24] MEDS ORDERED: INSULIN (LEVEMIR) 100 UNITS/ML UNITS SQ ONE (06:48)
[2021-06-24] MEDS ORDERED: INSULIN (NOVOLOG MIX 70/30) 100 UNITS/ML MDV SQ ONE (06:48)
[2021-06-24 09:04] LABS: BASO % 0.4 % (0-2.0); EOS % 1.9 % (0-4.5); HEMATOCRIT 31.5 % (32.4-45.2); HEMOGLOBIN 10.5 GM/dL (10.7-15.3); LYMPH % 8.7 % (8-40); MCH 23.4 pg (25.7-33.7); MCHC 33.4 g/dl (32.0-36.0); MEAN CELL VOLUME 70.1 fl (80-96); MEAN PLT VOLUME 9.1 fl (7.5-11.1); MONO % 3.6 % (3.8-10.2); NEUT % 85.4 % (42.8-82.8); PLATELET COUNT 144 10^3/uL (134-434); RBC 4.49 M/mm3 (3.60-5.2); RDW 16.2 % (11.6-15.6); WHITE BLOOD COUNT 8.9 K/mm3 (4.0-10.0)
[2021-06-24 09:24] LABS: CALCIUM 7.5 mg/dL (8.5-10.1)
[2021-06-24 09:25] LABS: ALBUMIN 2.5 g/dl (3.4-5.0); BLOOD UREA NITROGEN 20.6 mg/dL (7-18)
[2021-06-24 09:28] LABS: CREATININE 1.2 mg/dL (0.55-1.3)
[2021-06-24 09:30] LABS: BILIRUBIN,TOTAL 0.6 mg/dL (0.2-1); TOT PROT 4.9 g/dl (6.4-8.2)
[2021-06-24] MEDS ORDERED: PT OWN MED DRAWER 7, Y5N ONE (09:51)
[2021-06-24] MEDS: METOPROLOL TARTRATE 25 MG TABLET (FP) PO SCH (09:55)
[2021-06-24] MEDS: PANTOPRAZOLE 40 MG TABLET PO SCH (09:56)
[2021-06-24] MEDS: ERTAPENEM SODIUM 1 GM in SODIUM CHLORIDE 50 ML IVPB SCH (09:56)
[2021-06-24] MEDS: ROSUVASTATIN CA 10 MG TABLET (FP) PO SCH (09:56)
[2021-06-24] MEDS: ENOXAPARIN NA (PORCINE) 80 MG/0.8 ML DISP.SYRIN SQ SCH ×2 (10:52→21:44)
[2021-06-24] MEDS: TIOTROPIUM BROMIDE 2.5 MCG (SPIRIVA) RESPIMAT INHALER IH SCH (11:10)
[2021-06-24] MEDS: KCL 10 MEQ IVPB 10 MEQ/100 ML INFUS.BAG IVPB SCH ×2 (15:32→17:04)
[2021-06-24] MEDS ORDERED: METOPROLOL TARTRATE 50 MG TABLET (FP) PO ONE (16:47)
[2021-06-24] MEDS: MONTELUKAST NA 10 MG TABLET PO SCH (21:44)
[2021-06-24] MEDS: FLUDROCORTISONE ACETATE 0.1 MG TABLET (FP) PO SCH (21:45)
[2021-06-24] MEDS: METOPROLOL TARTRATE 50 MG TABLET (FP) PO SCH (21:45)
[2021-06-25] MEDS: INSULIN SLIDING SCALE (NOVOLOG) 1 VIAL SQ SCH ×4 (06:21→21:52)
[2021-06-25 07:38] LABS: BASO % 0.2 % (0-2.0); EOS % 5.4 % (0-4.5); HEMATOCRIT 29.7 % (32.4-45.2); HEMOGLOBIN 9.8 GM/dL (10.7-15.3); LYMPH % 15.4 % (8-40); MCH 23.4 pg (25.7-33.7); MCHC 33.1 g/dl (32.0-36.0); MEAN CELL VOLUME 70.8 fl (80-96); MEAN PLT VOLUME 8.5 fl (7.5-11.1); MONO % 5.6 % (3.8-10.2); NEUT % 73.4 % (42.8-82.8); PLATELET COUNT 155 10^3/uL (134-434); RBC 4.19 M/mm3 (3.60-5.2); RDW 15.7 % (11.6-15.6); WHITE BLOOD COUNT 5.8 K/mm3 (4.0-10.0)
[2021-06-25 07:50] LABS: CALCIUM 7.8 mg/dL (8.5-10.1)
[2021-06-25 07:51] LABS: ALBUMIN 2.4 g/dl (3.4-5.0); BLOOD UREA NITROGEN 16.4 mg/dL (7-18)
[2021-06-25 07:54] LABS: CREATININE 0.8 mg/dL (0.55-1.3)
[2021-06-25 07:55] LABS: BILIRUBIN,TOTAL 0.4 mg/dL (0.2-1); TOT PROT 4.7 g/dl (6.4-8.2)
[2021-06-25] MEDS ORDERED: PT OWN MED DRAWER 7, Y5N ONE (10:28)
[2021-06-25] MEDS ORDERED: IRON SUCROSE INJECTION 200 MG in SODIUM CHLORIDE 90 ML IVPB ONE (11:00)
[2021-06-25] MEDS: PANTOPRAZOLE 40 MG TABLET PO SCH (11:01)
[2021-06-25] MEDS: ENOXAPARIN NA (PORCINE) 80 MG/0.8 ML DISP.SYRIN SQ SCH ×2 (11:01→21:46)
[2021-06-25] MEDS: FLUDROCORTISONE ACETATE 0.1 MG TABLET (FP) PO SCH (11:01)
[2021-06-25] MEDS: METOPROLOL TARTRATE 50 MG TABLET (FP) PO SCH ×2 (11:01→21:46)
[2021-06-25] MEDS: ROSUVASTATIN CA 10 MG TABLET (FP) PO SCH (11:02)
[2021-06-25] MEDS: ERTAPENEM SODIUM 1 GM in SODIUM CHLORIDE 50 ML IVPB SCH (11:06)
[2021-06-25] MEDS: TIOTROPIUM BROMIDE 2.5 MCG (SPIRIVA) RESPIMAT INHALER IH SCH (11:06)
[2021-06-25] MEDS ORDERED: HYDROCORTISONE 1% TOPICAL OINT 30 GM TUBE TP PRN (11:44)
[2021-06-25 16:28] LABS: HEMOGLOBIN 9.5 GM/dL (10.7-15.3); MCHC 32.7 g/dl (32.0-36.0); MEAN CELL VOLUME 70.3 fl (80-96); MEAN PLT VOLUME 8.4 fl (7.5-11.1); PLATELET COUNT 142 10^3/uL (134-434); RBC 4.12 M/mm3 (3.60-5.2); RDW 15.9 % (11.6-15.6); WHITE BLOOD COUNT 3.9 K/mm3 (4.0-10.0)
[2021-06-25] MEDS: MONTELUKAST NA 10 MG TABLET PO SCH (21:46)
[2021-06-26] MEDS: INSULIN SLIDING SCALE (NOVOLOG) 1 VIAL SQ SCH ×2 (06:19→12:17)
[2021-06-26 08:26] LABS: HEMOGLOBIN 10.4 GM/dL (10.7-15.3); MCH 23.4 pg (25.7-33.7); MCHC 33.4 g/dl (32.0-36.0); MEAN CELL VOLUME 70.2 fl (80-96); MEAN PLT VOLUME 8.7 fl (7.5-11.1); PLATELET COUNT 178 10^3/uL (134-434); RBC 4.42 M/mm3 (3.60-5.2); RDW 15.7 % (11.6-15.6); WHITE BLOOD COUNT 4.3 K/mm3 (4.0-10.0)
[2021-06-26] MEDS ORDERED: PT OWN MED DRAWER 7, Y5N ONE (09:47)
[2021-06-26] MEDS: ERTAPENEM SODIUM 1 GM in SODIUM CHLORIDE 50 ML IVPB SCH (09:56)
[2021-06-26] MEDS: METOPROLOL TARTRATE 50 MG TABLET (FP) PO SCH (09:57)
[2021-06-26] MEDS: PANTOPRAZOLE 40 MG TABLET PO SCH (09:57)
[2021-06-26] MEDS: FLUDROCORTISONE ACETATE 0.1 MG TABLET (FP) PO SCH (09:59)
[2021-06-26] MEDS: TIOTROPIUM BROMIDE 2.5 MCG (SPIRIVA) RESPIMAT INHALER IH SCH (10:02)
[2021-06-26] MEDS: ENOXAPARIN NA (PORCINE) 80 MG/0.8 ML DISP.SYRIN SQ SCH (10:02)
[2021-06-26] MEDS: ROSUVASTATIN CA 10 MG TABLET (FP) PO SCH (10:02)
[2021-06-26 10:21] LABS: ANISOCYTOSIS 1+; MACROCYTOSIS 0; OVALOCYTE 1+; PLATELET ESTIMATE NORMAL
[2021-06-26 15:44] VITALS: BP 122/92; PULSE 122; TEMP 97.8
[2021-06-26] MEDS ORDERED: APIXABAN 5 MG TABLET PO SCH (22:00)
== END 2021-06-26 15:55 | disposition home or self-care (01) | DRG 690 ==
LOC: JER 15:25 → JERBED 18:24 → OBSVTOIN 19:59 → J4W 06-23 00:32
PROVIDERS: ADMIT Internal Medicine; ATTEND Family Medicine
DX: N39.0 Urinary tract infection, site not specified (principal); I50.32 Chronic diastolic (congestive) heart failure; I42.8 Other cardiomyopathies; E11.9 Type 2 diabetes mellitus without complications; I48.91 Unspecified atrial fibrillation; Z79.01 Long term (current) use of anticoagulants; E78.5 Hyperlipidemia, unspecified; I11.0 Hypertensive heart disease with heart failure; I25.10 Atherosclerotic heart disease of native coronary artery without angina pectoris; E66.9 Obesity, unspecified; Z68.36 Body mass index [BMI] 36.0-36.9, adult; E78.00 Pure hypercholesterolemia, unspecified; Q63.1 Lobulated, fused and horseshoe kidney; D64.9 Anemia, unspecified; K80.50 Calculus of bile duct without cholangitis or cholecystitis without obstruction
CPT/HCPCS: 36415; 71045-TC-FY; 74177-TC; 74181-TC; 76705-TC; 78227-TC; 80048; 80053; 80076; 81003; 82533; 82728; 82962; 83540; 83550; 83605; 83690; 83735; 84100; 84484; 85025; 85027; 85610; 85730; 86850; 86900; 86901; 87040; 87086; 87324; 87449; 93005; 93010; 99285-25; A9537; C9803; G0378; J0131; J1756; Q9967; U0003; U0005

== ENCOUNTER 2021-06-28 01:15 | Inpatient (IN) | payer OTHER ==
[2021-06-28] MEDS ORDERED: SODIUM CHLORIDE 0.9% 500 ML INFUS.BAG IV ONE (01:41)
[2021-06-28] MEDS ORDERED: FAMOTIDINE 20 MG/50 ML IVPB 20 MG/50 ML MG IVPB ONE ×2 (01:43→02:58)
[2021-06-28 01:55] LABS: HEMATOCRIT 32.7 % (32.4-45.2); HEMOGLOBIN 11.1 GM/dL (10.7-15.3); MCH 23.6 pg (25.7-33.7); MCHC 33.8 g/dl (32.0-36.0); MEAN CELL VOLUME 69.6 fl (80-96); MEAN PLT VOLUME 7.7 fl (7.5-11.1); PLATELET COUNT 180 10^3/uL (134-434); RBC 4.69 M/mm3 (3.60-5.2); RDW 15.5 % (11.6-15.6)
[2021-06-28 02:08] LABS: INR 1.37 (0.83-1.09); PROTHROMBIN TIME (PATIENT) 16.7 SEC (9.7-13.0)
[2021-06-28 02:14] LABS: CHLORIDE 106 mmol/L (98-107); SODIUM 140 mmol/L (136-145)
[2021-06-28 02:16] LABS: CALCIUM 8.4 mg/dL (8.5-10.1)
[2021-06-28 02:17] LABS: ALBUMIN 2.9 g/dl (3.4-5.0); ANION GAP 9 MMOL/L (8-16); BLOOD UREA NITROGEN 12.3 mg/dL (7-18); CO2 24 mmol/L (21-32); GLUCOSE,RANDOM 108 mg/dL (74-106); LIPASE 320 U/L (73-393)
[2021-06-28 02:24] LABS: BILIRUBIN,TOTAL 0.3 mg/dL (0.2-1); CREATININE 0.7 mg/dL (0.55-1.3); SGOT/AST 92 U/L (15-37); SGPT/ALT 77 U/L (13-61); TOT PROT 5.8 g/dl (6.4-8.2)
[2021-06-28] MEDS ORDERED: POTASSIUM CHLORIDE TABS 20 MEQ TABLET.ER (FP) PO ONE ×2 (02:32→02:57)
[2021-06-28] MEDS ORDERED: MAGNESIUM SULF 50% (8.12 MEQ/2 ML-1 GM VIAL) IVPB ONE (02:32)
[2021-06-28] MEDS ORDERED: MAGNESIUM SULFATE IN WATER 2 GM/50 ML IVPB IVPB ONE (02:58)
[2021-06-28 03:26] LABS: ALK PHOS 156 U/L (45-117)
[2021-06-28 03:27] LABS: LACTIC ACID 2.2 mmol/L (0.4-2.0)
[2021-06-28] MEDS ORDERED: ONDANSETRON 4 MG/2 ML VIAL IVPUSH PRN (03:54)
[2021-06-28 03:56] LABS: ANISOCYTOSIS 1+; MACROCYTOSIS 0; PLATELET ESTIMATE NORMAL
[2021-06-28] MEDS ORDERED: ONDANSETRON 4 MG/2 ML VIAL ONE (03:56)
[2021-06-28] MEDS ORDERED: ARTIFICIAL TEARS (POLYVINYL ALCOHOL) OPTH DROPS OU PRN (04:12)
[2021-06-28] MEDS ORDERED: ONDANSETRON 4 MG/2 ML VIAL IVPUSH ONE (04:21)
[2021-06-28] MEDS ORDERED: ALBUTEROL SO4 HFA INHALER IH PRN (04:47)
[2021-06-28] MEDS ORDERED: METOPROLOL TARTRATE 5 MG/5 ML VIAL IVPUSH ONE (06:50)
[2021-06-28] MEDS ORDERED: METOPROLOL TARTRATE 5 MG/5 ML VIAL ONE (06:52)
[2021-06-28] MEDS ORDERED: CEFUROXIME AXETIL 250 MG TABLET PO SCH (10:00)
[2021-06-28] MEDS ORDERED: FUROSEMIDE 40 MG TABLET (FP) PO SCH (10:00)
[2021-06-28] MEDS ORDERED: APIXABAN 5 MG TABLET PO SCH (10:00)
[2021-06-28] MEDS ORDERED: PATIENT'S OWN MEDICATION (NON-FORMULARY) (Azelastine Hcl [Azelastine Hcl] 137 MCG/0.137 ML NS SCH (10:00)
[2021-06-28] MEDS ORDERED: ROSUVASTATIN CA 10 MG TABLET (FP) PO SCH (10:00)
[2021-06-28] MEDS ORDERED: FUROSEMIDE 40 MG TABLET (FP) ONE (10:23)
[2021-06-28] MEDS ORDERED: FUROSEMIDE 40 MG/4 ML INJECTABLE VIAL IVPUSH ONE (10:24)
[2021-06-28] MEDS ORDERED: PT OWN MED DRAWER 7, Y5N ONE (10:24)
[2021-06-28] MEDS ORDERED: APIXABAN 2.5 MG TABLET ONE (10:24)
[2021-06-28 10:30] LABS: CHOLESTEROL 83 mg/dL (50-200)
[2021-06-28 10:31] LABS: TRIGLYCERIDES 84 mg/dL (0-150)
[2021-06-28 10:32] LABS: LDL CHOLESTEROL (ONLY SJRH) 36 mg/dL (5-100)
[2021-06-28 10:33] LABS: HDL CHOLESTEROL 33 mg/dL (40-60)
[2021-06-28] MEDS: LACTOBACILLUS ACIDOPHILUS 1 TABLET PO SCH ×2 (10:37→22:37)
[2021-06-28] MEDS: MOMETASONE FUROATE 110 MCG/IH INHALER IH SCH ×2 (10:38→22:13)
[2021-06-28 11:08] LABS: EPI CELLS 14 /uL (0-25.1); HYALINE CASTS 2 /uL (0-3.1); PH,URINE 5.5 (5.0-8.0); URINE APPEARANCE CLEAR; URINE BACTERIA 1 /uL (0-1359); URINE BILIRUBIN NEGATIVE (NEGATIVE); URINE COLOR YELLOW; URINE GLUCOSE (UA) NEGATIVE (NEGATIVE); URINE KETONE NEGATIVE (NEGATIVE); URINE LEUK ESTERASE TRACE (NEGATIVE); URINE NITRITE NEGATIVE (NEGATIVE); URINE PROTEIN TRACE (NEGATIVE); URINE RBC 54 /uL (0-23.9); URINE UROBILINOGEN 0.2 mg/dL (0.2-1.0); URINE WBC 24 /uL (0-25.8)
[2021-06-28] MEDS ORDERED: MEROPENEM 1 GM in DEXTROSE 5%-WATER 100 ML IVPB ONE (12:00)
[2021-06-28] MEDS ORDERED: ENOXAPARIN NA (PORCINE) 80 MG/0.8 ML DISP.SYRIN SQ ONE ×2 (12:10→22:01)
[2021-06-28] MEDS ORDERED: PANTOPRAZOLE SODIUM 40 MG VIAL ONE ×2 (12:10→22:18)
[2021-06-28] MEDS ORDERED: MEROPENEM 1 GM VIAL (RESTRICTED TO ID) IVPB ONE (12:24)
[2021-06-28] MEDS ORDERED: ACETAMINOPHEN 325 MG TABLET (FP) ONE ×2 (12:26→22:18)
[2021-06-28] MEDS: ACETAMINOPHEN 325 MG TABLET (FP) PO PRN ×2 (12:36→22:11)
[2021-06-28] MEDS: ENOXAPARIN NA (PORCINE) 80 MG/0.8 ML DISP.SYRIN SQ SCH ×2 (13:31→22:05)
[2021-06-28] MEDS: PANTOPRAZOLE SODIUM 40 MG VIAL IVPUSH SCH ×2 (13:31→22:37)
[2021-06-28 14:08] LABS: HEMOGLOBIN 9.5 GM/dL (10.7-15.3); MCH 23.3 pg (25.7-33.7); MCHC 32.8 g/dl (32.0-36.0); MEAN PLT VOLUME 8.5 fl (7.5-11.1); PLATELET COUNT 181 10^3/uL (134-434); RBC 4.08 M/mm3 (3.60-5.2); RDW 15.9 % (11.6-15.6); WHITE BLOOD COUNT 13.2 K/mm3 (4.0-10.0)
[2021-06-28 14:22] LABS: CHLORIDE 104 mmol/L (98-107); SODIUM 137 mmol/L (136-145)
[2021-06-28 14:24] LABS: CALCIUM 7.8 mg/dL (8.5-10.1)
[2021-06-28 14:25] LABS: ALBUMIN 2.7 g/dl (3.4-5.0); ANION GAP 7 MMOL/L (8-16); BLOOD UREA NITROGEN 10.8 mg/dL (7-18); CO2 26 mmol/L (21-32); GLUCOSE,RANDOM 158 mg/dL (74-106)
[2021-06-28 14:28] LABS: CREATININE 0.9 mg/dL (0.55-1.3); SGOT/AST 37 U/L (15-37); SGPT/ALT 59 U/L (13-61)
[2021-06-28 14:29] LABS: BILIRUBIN,TOTAL 0.8 mg/dL (0.2-1)
[2021-06-28 14:30] LABS: TOT PROT 5.1 g/dl (6.4-8.2)
[2021-06-28 14:37] LABS: ALK PHOS 113 U/L (45-117); ANISOCYTOSIS 3+; MACROCYTOSIS 0; PLATELET ESTIMATE NORMAL
[2021-06-28] MEDS ORDERED: MONTELUKAST NA 10 MG TABLET ONE (22:18)
[2021-06-28] MEDS ORDERED: LORATADINE 10 MG TABLET ONE (22:18)
[2021-06-28] MEDS ORDERED: PANTOPRAZOLE SODIUM 40 MG/100 ML BAG IVPB ONE (22:20)
[2021-06-28] MEDS: FLUDROCORTISONE ACETATE 0.1 MG TABLET (FP) PO SCH (22:36)
[2021-06-28] MEDS: MEROPENEM 1 GM in DEXTROSE 5%-WATER 100 ML IVPB SCH (22:36)
[2021-06-28] MEDS: MONTELUKAST NA 10 MG TABLET PO SCH (22:36)
[2021-06-28] MEDS: ROSUVASTATIN CA 10 MG TABLET (FP) PO SCH (22:37)
[2021-06-29] MEDS: MEROPENEM 1 GM in DEXTROSE 5%-WATER 100 ML IVPB SCH ×3 (02:57→21:07)
[2021-06-29] MEDS ORDERED: DEXTROSE 5%-WATER 100 ML IVPB ONE ×3 (05:53→21:04)
[2021-06-29] MEDS ORDERED: MEROPENEM 1 GM VIAL (RESTRICTED TO ID) IVPB ONE ×3 (05:53→21:03)
[2021-06-29] MEDS: LORATADINE 10 MG TABLET PO SCH ×2 (06:57→21:08)
[2021-06-29 07:43] LABS: N-TERMINAL BNP 28985.6 pg/ml (5-125)
[2021-06-29 07:45] LABS: BASO % 0.5 % (0-2.0); EOS % 1.7 % (0-4.5); HEMOGLOBIN 9.4 GM/dL (10.7-15.3); MCH 23.7 pg (25.7-33.7); MCHC 33.7 g/dl (32.0-36.0); MEAN CELL VOLUME 70.3 fl (80-96); MEAN PLT VOLUME 8.1 fl (7.5-11.1); MONO % 6.1 % (3.8-10.2); NEUT % 80.7 % (42.8-82.8); PLATELET COUNT 172 10^3/uL (134-434); RBC 3.98 M/mm3 (3.60-5.2); RDW 15.5 % (11.6-15.6); WHITE BLOOD COUNT 7.7 K/mm3 (4.0-10.0)
[2021-06-29 08:12] LABS: CALCIUM 7.9 mg/dL (8.5-10.1)
[2021-06-29 08:13] LABS: ALBUMIN 2.5 g/dl (3.4-5.0); BLOOD UREA NITROGEN 13.6 mg/dL (7-18)
[2021-06-29 08:16] LABS: CREATININE 0.6 mg/dL (0.55-1.3)
[2021-06-29 08:17] LABS: BILIRUBIN,TOTAL 0.8 mg/dL (0.2-1)
[2021-06-29] MEDS: ENOXAPARIN NA (PORCINE) 80 MG/0.8 ML DISP.SYRIN SQ SCH ×2 (08:18→21:11)
[2021-06-29] MEDS: MUPIROCIN 2% TOPICAL OINTMENT FOR DECOLONIZATION NS SCH ×2 (10:09→21:11)
[2021-06-29] MEDS: FUROSEMIDE 40 MG/4 ML INJECTABLE VIAL IVPUSH SCH (10:13)
[2021-06-29] MEDS: PANTOPRAZOLE SODIUM 40 MG VIAL IVPUSH SCH ×2 (11:11→21:10)
[2021-06-29] MEDS: POTASSIUM CHLORIDE TABS 20 MEQ TABLET.ER (FP) PO SCH (12:01)
[2021-06-29] MEDS ORDERED: METOPROLOL TARTRATE 5 MG/5 ML VIAL IVPUSH ONE (12:27)
[2021-06-29] MEDS: LACTOBACILLUS ACIDOPHILUS 1 TABLET PO SCH ×2 (13:53→21:08)
[2021-06-29] MEDS ORDERED: METOPROLOL TARTRATE 5 MG/5 ML VIAL IVPUSH PRN (17:28)
[2021-06-29] MEDS: MOMETASONE FUROATE 110 MCG/IH INHALER IH SCH ×2 (20:58→21:14)
[2021-06-29] MEDS: ROSUVASTATIN CA 10 MG TABLET (FP) PO SCH (21:08)
[2021-06-29] MEDS: MONTELUKAST NA 10 MG TABLET PO SCH (21:08)
[2021-06-29] MEDS: FLUDROCORTISONE ACETATE 0.1 MG TABLET (FP) PO SCH (21:09)
[2021-06-29] MEDS: CHLORHEXIDINE GLUCONATE 4% CLEANSER FOR DECOLONIZATION TP SCH (21:11)
[2021-06-30] MEDS: ACETAMINOPHEN 325 MG TABLET (FP) PO PRN (02:31)
[2021-06-30] MEDS ORDERED: MEROPENEM 1 GM VIAL (RESTRICTED TO ID) IVPB ONE ×3 (03:42→18:00)
[2021-06-30] MEDS ORDERED: DEXTROSE 5%-WATER 100 ML IVPB ONE ×3 (03:42→18:00)
[2021-06-30] MEDS: MEROPENEM 1 GM in DEXTROSE 5%-WATER 100 ML IVPB SCH ×3 (03:44→18:11)
[2021-06-30 07:57] LABS: BASO % 0.6 % (0-2.0); EOS % 3.3 % (0-4.5); HEMATOCRIT 26.9 % (32.4-45.2); LYMPH % 23.6 % (8-40); MCH 23.5 pg (25.7-33.7); MCHC 33.4 g/dl (32.0-36.0); MEAN CELL VOLUME 70.4 fl (80-96); MEAN PLT VOLUME 8.3 fl (7.5-11.1); MONO % 11.5 % (3.8-10.2); PLATELET COUNT 192 10^3/uL (134-434); RBC 3.83 M/mm3 (3.60-5.2); RDW 15.7 % (11.6-15.6); WHITE BLOOD COUNT 5.4 K/mm3 (4.0-10.0)
[2021-06-30 08:22] LABS: ALBUMIN 2.3 g/dl (3.4-5.0); BLOOD UREA NITROGEN 13.6 mg/dL (7-18)
[2021-06-30 08:25] LABS: CREATININE 0.7 mg/dL (0.55-1.3)
[2021-06-30 08:26] LABS: BILIRUBIN,TOTAL 0.4 mg/dL (0.2-1)
[2021-06-30 08:27] LABS: TOT PROT 4.9 g/dl (6.4-8.2)
[2021-06-30] MEDS: ENOXAPARIN NA (PORCINE) 80 MG/0.8 ML DISP.SYRIN SQ SCH ×2 (10:28→21:44)
[2021-06-30] MEDS: PANTOPRAZOLE SODIUM 40 MG VIAL IVPUSH SCH ×2 (10:28→21:15)
[2021-06-30] MEDS: POTASSIUM CHLORIDE TABS 20 MEQ TABLET.ER (FP) PO SCH (10:29)
[2021-06-30] MEDS: LACTOBACILLUS ACIDOPHILUS 1 TABLET PO SCH ×2 (10:31→21:16)
[2021-06-30] MEDS: FUROSEMIDE 40 MG/4 ML INJECTABLE VIAL IVPUSH SCH (10:32)
[2021-06-30] MEDS: MOMETASONE FUROATE 110 MCG/IH INHALER IH SCH ×2 (10:33→21:17)
[2021-06-30] MEDS: MUPIROCIN 2% TOPICAL OINTMENT FOR DECOLONIZATION NS SCH ×2 (11:00→21:17)
[2021-06-30] MEDS ORDERED: DIGOXIN 0.5 MG/2 ML AMPUL IVPUSH ONE (18:20)
[2021-06-30] MEDS: LORATADINE 10 MG TABLET PO SCH (21:16)
[2021-06-30] MEDS: ROSUVASTATIN CA 10 MG TABLET (FP) PO SCH (21:16)
[2021-06-30] MEDS: FLUDROCORTISONE ACETATE 0.1 MG TABLET (FP) PO SCH (21:16)
[2021-06-30] MEDS: FERROUS SO4 325 MG TABLET (FP) PO SCH (21:16)
[2021-06-30] MEDS: MONTELUKAST NA 10 MG TABLET PO SCH (21:17)
[2021-06-30] MEDS: CHLORHEXIDINE GLUCONATE 4% CLEANSER FOR DECOLONIZATION TP SCH (21:17)
[2021-07-01] MEDS: MEROPENEM 1 GM in DEXTROSE 5%-WATER 100 ML IVPB SCH ×3 (03:13→18:18)
[2021-07-01] MEDS ORDERED: DIGOXIN 0.5 MG/2 ML AMPUL IVPUSH ONE ×2 (06:00→11:26)
[2021-07-01 07:04] LABS: BASO % 0.7 % (0-2.0); EOS % 3.6 % (0-4.5); HEMATOCRIT 31.7 % (32.4-45.2); HEMOGLOBIN 10.6 GM/dL (10.7-15.3); LYMPH % 28.2 % (8-40); MCH 23.3 pg (25.7-33.7); MCHC 33.4 g/dl (32.0-36.0); MEAN CELL VOLUME 69.9 fl (80-96); MEAN PLT VOLUME 7.7 fl (7.5-11.1); MONO % 11.7 % (3.8-10.2); NEUT % 55.8 % (42.8-82.8); PLATELET COUNT 235 10^3/uL (134-434); RBC 4.54 M/mm3 (3.60-5.2); RDW 15.9 % (11.6-15.6); WHITE BLOOD COUNT 6.1 K/mm3 (4.0-10.0)
[2021-07-01 07:35] LABS: BLOOD UREA NITROGEN 10.4 mg/dL (7-18); CALCIUM 7.8 mg/dL (8.5-10.1); MAGNESIUM 2.1 mg/dL (1.8-2.4)
[2021-07-01 07:38] LABS: CREATININE 0.5 mg/dL (0.55-1.3)
[2021-07-01] MEDS ORDERED: MEROPENEM 1 GM VIAL (RESTRICTED TO ID) IVPB ONE ×2 (07:57→18:16)
[2021-07-01] MEDS ORDERED: DEXTROSE 5%-WATER 100 ML IVPB ONE ×2 (07:57→18:17)
[2021-07-01] MEDS: ENOXAPARIN NA (PORCINE) 80 MG/0.8 ML DISP.SYRIN SQ SCH (08:57)
[2021-07-01] MEDS: FOLIC ACID 1 MG TABLET (FP) PO SCH (09:58)
[2021-07-01] MEDS: MUPIROCIN 2% TOPICAL OINTMENT FOR DECOLONIZATION NS SCH ×2 (09:58→22:12)
[2021-07-01] MEDS: FUROSEMIDE 40 MG/4 ML INJECTABLE VIAL IVPUSH SCH (09:59)
[2021-07-01] MEDS: PANTOPRAZOLE SODIUM 40 MG VIAL IVPUSH SCH (09:59)
[2021-07-01] MEDS ORDERED: METOPROLOL TARTRATE 5 MG/5 ML VIAL IVPUSH ONE (10:00)
[2021-07-01] MEDS: POTASSIUM CHLORIDE TABS 20 MEQ TABLET.ER (FP) PO SCH (10:00)
[2021-07-01] MEDS: ASCORBIC ACID 500 MG TABLET (FP) PO SCH (10:00)
[2021-07-01] MEDS: LACTOBACILLUS ACIDOPHILUS 1 TABLET PO SCH ×2 (10:02→22:11)
[2021-07-01] MEDS: MOMETASONE FUROATE 110 MCG/IH INHALER IH SCH ×2 (10:10→23:20)
[2021-07-01] MEDS: dilTIAZem HCL 30 MG TABLET PO SCH ×3 (10:35→23:20)
[2021-07-01] MEDS: FERROUS SO4 325 MG TABLET (FP) PO SCH ×2 (10:36→22:11)
[2021-07-01] MEDS ORDERED: PT OWN MED DRAWER 7, Y5N ONE ×2 (18:18→22:10)
[2021-07-01] MEDS: LORATADINE 10 MG TABLET PO SCH (22:11)
[2021-07-01] MEDS: APIXABAN 5 MG TABLET PO SCH (22:11)
[2021-07-01] MEDS: MONTELUKAST NA 10 MG TABLET PO SCH (22:11)
[2021-07-01] MEDS: SOTALOL HCL 80 MG TABLET (FP) PO SCH (22:11)
[2021-07-01] MEDS: ROSUVASTATIN CA 10 MG TABLET (FP) PO SCH (22:11)
[2021-07-01] MEDS: PANTOPRAZOLE 40 MG TABLET PO SCH (22:11)
[2021-07-01] MEDS: FLUDROCORTISONE ACETATE 0.1 MG TABLET (FP) PO SCH (22:11)
[2021-07-01] MEDS: CHLORHEXIDINE GLUCONATE 4% CLEANSER FOR DECOLONIZATION TP SCH (22:12)
[2021-07-02] MEDS ORDERED: DEXTROSE 5%-WATER 100 ML IVPB ONE ×3 (02:09→16:22)
[2021-07-02] MEDS ORDERED: MEROPENEM 1 GM VIAL (RESTRICTED TO ID) IVPB ONE ×3 (02:09→16:21)
[2021-07-02] MEDS: MEROPENEM 1 GM in DEXTROSE 5%-WATER 100 ML IVPB SCH ×3 (02:51→17:07)
[2021-07-02] MEDS: dilTIAZem HCL 30 MG TABLET PO SCH ×4 (05:29→23:47)
[2021-07-02] MEDS ORDERED: PT OWN MED DRAWER 7, Y5N ONE ×2 (09:19→21:06)
[2021-07-02] MEDS: MOMETASONE FUROATE 110 MCG/IH INHALER IH SCH ×2 (09:27→21:26)
[2021-07-02] MEDS: LACTOBACILLUS ACIDOPHILUS 1 TABLET PO SCH ×2 (09:27→21:26)
[2021-07-02] MEDS: SOTALOL HCL 80 MG TABLET (FP) PO SCH ×2 (09:27→21:50)
[2021-07-02] MEDS: POTASSIUM CHLORIDE TABS 20 MEQ TABLET.ER (FP) PO SCH (09:28)
[2021-07-02] MEDS: APIXABAN 5 MG TABLET PO SCH ×2 (09:28→21:23)
[2021-07-02] MEDS: PANTOPRAZOLE 40 MG TABLET PO SCH ×2 (09:28→21:24)
[2021-07-02] MEDS: FOLIC ACID 1 MG TABLET (FP) PO SCH (09:28)
[2021-07-02] MEDS: ASCORBIC ACID 500 MG TABLET (FP) PO SCH (09:28)
[2021-07-02] MEDS: FERROUS SO4 325 MG TABLET (FP) PO SCH ×2 (09:28→21:23)
[2021-07-02] MEDS: FUROSEMIDE 40 MG/4 ML INJECTABLE VIAL IVPUSH SCH (09:28)
[2021-07-02] MEDS: MUPIROCIN 2% TOPICAL OINTMENT FOR DECOLONIZATION NS SCH ×2 (14:32→21:26)
[2021-07-02 16:23] LABS: CALCIUM 8.7 mg/dL (8.5-10.1)
[2021-07-02 16:25] LABS: BLOOD UREA NITROGEN 16.6 mg/dL (7-18); MAGNESIUM 2.2 mg/dL (1.8-2.4)
[2021-07-02 16:28] LABS: CREATININE 0.8 mg/dL (0.55-1.3)
[2021-07-02] MEDS: LORATADINE 10 MG TABLET PO SCH (21:23)
[2021-07-02] MEDS: ROSUVASTATIN CA 10 MG TABLET (FP) PO SCH (21:23)
[2021-07-02] MEDS: MONTELUKAST NA 10 MG TABLET PO SCH (21:23)
[2021-07-02] MEDS: FLUDROCORTISONE ACETATE 0.1 MG TABLET (FP) PO SCH (21:24)
[2021-07-02] MEDS: CHLORHEXIDINE GLUCONATE 4% CLEANSER FOR DECOLONIZATION TP SCH (21:26)
[2021-07-03] MEDS ORDERED: MEROPENEM 1 GM VIAL (RESTRICTED TO ID) IVPB ONE ×3 (01:28→16:31)
[2021-07-03] MEDS ORDERED: DEXTROSE 5%-WATER 100 ML IVPB ONE ×3 (01:29→16:31)
[2021-07-03] MEDS: MEROPENEM 1 GM in DEXTROSE 5%-WATER 100 ML IVPB SCH ×3 (01:40→17:52)
[2021-07-03] MEDS ORDERED: PT OWN MED DRAWER 7, Y5N ONE ×4 (05:39→22:24)
[2021-07-03 06:59] LABS: CALCIUM 8.3 mg/dL (8.5-10.1)
[2021-07-03 07:01] LABS: BLOOD UREA NITROGEN 20.5 mg/dL (7-18); MAGNESIUM 2.2 mg/dL (1.8-2.4)
[2021-07-03 07:04] LABS: CREATININE 0.6 mg/dL (0.55-1.3)
[2021-07-03] MEDS: dilTIAZem HCL 30 MG TABLET PO SCH (07:08)
[2021-07-03] MEDS ORDERED: POTASSIUM CHLORIDE TABS 20 MEQ TABLET.ER (FP) PO ONE (07:26)
[2021-07-03] MEDS: MUPIROCIN 2% TOPICAL OINTMENT FOR DECOLONIZATION NS SCH ×2 (09:29→21:32)
[2021-07-03] MEDS: FERROUS SO4 325 MG TABLET (FP) PO SCH ×2 (09:30→21:32)
[2021-07-03] MEDS: APIXABAN 5 MG TABLET PO SCH ×2 (09:30→21:32)
[2021-07-03] MEDS: FOLIC ACID 1 MG TABLET (FP) PO SCH (09:30)
[2021-07-03] MEDS: POTASSIUM CHLORIDE TABS 20 MEQ TABLET.ER (FP) PO SCH (09:31)
[2021-07-03] MEDS: PANTOPRAZOLE 40 MG TABLET PO SCH ×2 (09:31→21:32)
[2021-07-03] MEDS: FUROSEMIDE 40 MG TABLET (FP) PO SCH (09:31)
[2021-07-03] MEDS: ASCORBIC ACID 500 MG TABLET (FP) PO SCH (09:31)
[2021-07-03] MEDS: LACTOBACILLUS ACIDOPHILUS 1 TABLET PO SCH ×2 (09:32→21:32)
[2021-07-03] MEDS: SOTALOL HCL 80 MG TABLET (FP) PO SCH ×2 (09:41→21:54)
[2021-07-03] MEDS: MOMETASONE FUROATE 110 MCG/IH INHALER IH SCH ×2 (10:43→21:32)
[2021-07-03] MEDS: FLUDROCORTISONE ACETATE 0.1 MG TABLET (FP) PO SCH (21:32)
[2021-07-03] MEDS: CHLORHEXIDINE GLUCONATE 4% CLEANSER FOR DECOLONIZATION TP SCH (21:32)
[2021-07-03] MEDS: MONTELUKAST NA 10 MG TABLET PO SCH (21:33)
[2021-07-03] MEDS: ROSUVASTATIN CA 10 MG TABLET (FP) PO SCH (21:54)
[2021-07-03] MEDS: LORATADINE 10 MG TABLET PO SCH (21:54)
[2021-07-04] MEDS ORDERED: MEROPENEM 1 GM VIAL (RESTRICTED TO ID) IVPB ONE ×2 (03:17→10:00)
[2021-07-04] MEDS ORDERED: DEXTROSE 5%-WATER 100 ML IVPB ONE ×2 (03:17→10:00)
[2021-07-04] MEDS: MEROPENEM 1 GM in DEXTROSE 5%-WATER 100 ML IVPB SCH ×2 (03:21→10:11)
[2021-07-04] MEDS ORDERED: PT OWN MED DRAWER 7, Y5N ONE (10:02)
[2021-07-04] MEDS: LACTOBACILLUS ACIDOPHILUS 1 TABLET PO SCH (10:09)
[2021-07-04] MEDS: SOTALOL HCL 80 MG TABLET (FP) PO SCH (10:10)
[2021-07-04] MEDS: PANTOPRAZOLE 40 MG TABLET PO SCH (10:10)
[2021-07-04] MEDS: POTASSIUM CHLORIDE TABS 20 MEQ TABLET.ER (FP) PO SCH (10:10)
[2021-07-04] MEDS: APIXABAN 5 MG TABLET PO SCH (10:10)
[2021-07-04] MEDS: FERROUS SO4 325 MG TABLET (FP) PO SCH (10:10)
[2021-07-04] MEDS: ASCORBIC ACID 500 MG TABLET (FP) PO SCH (10:10)
[2021-07-04] MEDS: MOMETASONE FUROATE 110 MCG/IH INHALER IH SCH (10:11)
[2021-07-04] MEDS: FOLIC ACID 1 MG TABLET (FP) PO SCH (10:11)
[2021-07-04] MEDS: FUROSEMIDE 40 MG TABLET (FP) PO SCH (10:11)
[2021-07-04 12:25] VITALS: BMI 35.7
[2021-07-04 15:09] VITALS: BP 122/64; PULSE 64; TEMP 98.4
[2021-07-05] MEDS ORDERED: metoPROLOL SUCCINATE 25 MG TAB.SR.24H (FP) PO SCH (10:00)
== END 2021-07-04 15:06 | disposition home or self-care (01) | DRG 308 ==
LOC: JER 01:15 → JERBED 02:41 → JICU 06-29 01:05
PROVIDERS: ADMIT Internal Medicine; ATTEND Family Medicine
DX: I48.0 Paroxysmal atrial fibrillation (principal); I50.33 Acute on chronic diastolic (congestive) heart failure; E87.2 Acidosis; N39.0 Urinary tract infection, site not specified; I11.0 Hypertensive heart disease with heart failure; I25.10 Atherosclerotic heart disease of native coronary artery without angina pectoris; R16.1 Splenomegaly, not elsewhere classified; K21.9 Gastro-esophageal reflux disease without esophagitis; E78.5 Hyperlipidemia, unspecified; E83.51 Hypocalcemia; R07.9 Chest pain, unspecified; R11.2 Nausea with vomiting, unspecified; J45.909 Unspecified asthma, uncomplicated; D72.829 Elevated white blood cell count, unspecified; R00.0 Tachycardia, unspecified; R19.7 Diarrhea, unspecified; D64.9 Anemia, unspecified
CPT/HCPCS: 36415; 71045-TC-FY; 71275-TC; 76700-TC; 80048; 80053; 80061; 81003; 82550; 82962; 83605; 83690; 83735; 83880; 84439; 84443; 84481; 84484; 85025; 85610; 86140; 86850; 86900; 86901; 87040; 87045; 87046; 87086; 87205; 87324; 87449; 93005; 93010; 93306-TC; 99285-25; C9803; U0003; U0005

== ENCOUNTER 2022-03-02 04:23 | Emergency (ER) | payer OTHER ==
[2022-03-02 05:05] VITALS: BMI 37.0
[2022-03-02 06:12] LABS: HEMATOCRIT 39.3 % (32.4-45.2); HEMOGLOBIN 12.7 GM/dL (10.7-15.3); MCH 23.6 pg (25.7-33.7); MCHC 32.3 g/dl (32.0-36.0); MEAN CELL VOLUME 73.1 fl (80-96); PLATELET COUNT 216 10^3/uL (134-434); RBC 5.38 M/mm3 (3.60-5.2); RDW 16.1 % (11.6-15.6); WHITE BLOOD COUNT 10.4 K/mm3 (4.0-10.0)
[2022-03-02 06:23] LABS: CALCIUM 8.7 mg/dL (8.5-10.1)
[2022-03-02 06:24] LABS: ALBUMIN 3.5 g/dl (3.4-5.0); BLOOD UREA NITROGEN 25.6 mg/dL (7-18)
[2022-03-02] MEDS ORDERED: diphenhydrAMINE HCL 25 MG CAPSULE (FP) PO ONE ×2 (06:24→06:37)
[2022-03-02] MEDS ORDERED: PYRIDOXINE HCL (B-6) 100 MG TABLET PO ONE (06:24)
[2022-03-02 06:28] LABS: CREATININE 0.9 mg/dL (0.55-1.3)
[2022-03-02 06:29] LABS: BILIRUBIN,TOTAL 0.4 mg/dL (0.2-1); TOT PROT 6.1 g/dl (6.4-8.2)
[2022-03-02] MEDS ORDERED: PYRIDOXINE HCL (B-6) 50 MG TABLET (FP) PO ONE (06:45)
[2022-03-02 09:01] LABS: EPI CELLS 21 /uL (0-25.1); HYALINE CASTS 3 /uL (0-3.1); URINE APPEARANCE TURBID; URINE BACTERIA 9 /uL (0-1359); URINE BILIRUBIN 1+ (NEGATIVE); URINE COLOR DK YELLOW; URINE GLUCOSE (UA) NEGATIVE (NEGATIVE); URINE KETONE TRACE (NEGATIVE); URINE LEUK ESTERASE NEGATIVE (NEGATIVE); URINE NITRITE NEGATIVE (NEGATIVE); URINE PROTEIN TRACE (NEGATIVE); URINE RBC 106 /uL (0-23.9); URINE WBC 11 /uL (0-25.8)
[2022-03-02] MEDS ORDERED: TRIMETHOBENZAMIDE HCL 200MG/2ML INJ IM ONE ×2 (09:01→09:14)
[2022-03-02 09:49] VITALS: BP 142/45; PULSE 60; TEMP 97.7
[2022-03-02 10:10] LABS: ANISOCYTOSIS 1+; MACROCYTOSIS 0; PLATELET ESTIMATE NORMAL
== END 2022-03-02 10:25 | disposition home or self-care (01) ==
LOC: JER 04:23
DX: R11.2 Nausea with vomiting, unspecified (principal)
CPT/HCPCS: 0241U-QW; 36415; 71045-TC-FY; 80053; 81003; 82962; 83690; 84484; 85025; 87086; 93005; 93010; 99285-25

== ENCOUNTER 2024-09-11 22:00 | Observation (INO) | payer OTHER ==
[2024-09-11 22:23] VITALS: BMI 33.7
[2024-09-11] MEDS ORDERED: MAGNESIUM SULFATE IN WATER 4 GM/50 ML BAG IVPB ONE (22:55)
[2024-09-11] MEDS ORDERED: MAGNESIUM IVPB ONE (22:57)
[2024-09-11] MEDS ORDERED: dilTIAZem HCL 125 MG/25 ML - 25 ML VIAL ONE (23:01)
[2024-09-11] MEDS: dilTIAZem HCL 50 MG/10 ML - 10 ML VIAL IVPUSH ONE (23:22)
[2024-09-11] MEDS: SODIUM CHLORIDE 0.9% 500 ML INFUS.BAG IV ONE (23:22)
[2024-09-11 23:25] LABS: BASO % 0.6 % (0-2.0); EOS % 0.7 % (0-4.5); HEMATOCRIT 39.7 % (32.4-45.2); HEMOGLOBIN 12.5 GM/dL (10.7-15.3); LYMPH % 18.1 % (8-40); MCH 22.1 pg (25.7-33.7); MCHC 31.4 g/dl (32.0-36.0); MEAN CELL VOLUME 70.3 fl (80-96); MEAN PLT VOLUME 7.6 fl (7.5-11.1); MONO % 14.5 % (3.8-10.2); NEUT % 66.1 % (42.8-82.8); PLATELET COUNT 224 10^3/uL (134-434); RBC 5.65 M/mm3 (3.60-5.2); RDW 16.2 % (11.6-15.6)
[2024-09-11] MEDS ORDERED: dilTIAZem HCL 30 MG TABLET ONE (23:27)
[2024-09-11] MEDS: dilTIAZem HCL 30 MG TABLET PO ONE (23:34)
[2024-09-11 23:37] LABS: URINE APPEARANCE Error; URINE BILIRUBIN NEGATIVE (NEGATIVE); URINE COLOR YELLOW; URINE GLUCOSE (UA) NEGATIVE (NEGATIVE); URINE KETONE TRACE (NEGATIVE); URINE LEUK ESTERASE NEGATIVE (NEGATIVE); URINE NITRITE NEGATIVE (NEGATIVE); URINE PROTEIN NEGATIVE (NEGATIVE); URINE UROBILINOGEN 0.2 mg/dL (0.2-1.0)
[2024-09-11 23:42] LABS: INR 1.05 (0.83-1.09); PROTHROMBIN TIME (PATIENT) 11.8 SEC (9.7-13.0)
[2024-09-11 23:45] LABS: ACTIVATED PTT 37.7 SECONDS (25.2-36.5)
[2024-09-11 23:46] LABS: ALBUMIN 3.8 g/dl (3.4-5.0); BLOOD UREA NITROGEN 7.9 mg/dL (7-18); MAGNESIUM 1.8 mg/dL (1.8-2.4)
[2024-09-11 23:49] LABS: CREATININE 0.7 mg/dL (0.55-1.3); PHOSPHOROUS 2.8 mg/dL (2.5-4.9)
[2024-09-11 23:51] LABS: BILIRUBIN,TOTAL 0.6 mg/dL (0.2-1); TOT PROT 6.7 g/dl (6.4-8.2)
[2024-09-11 23:54] LABS: N-TERMINAL BNP 947.8 pg/ml (5-125)
[2024-09-12] MEDS: MAGNESIUM 4GM/H20 - 4 GM/100 ML IVPB IVPB ONE (00:22)
[2024-09-12] MEDS ORDERED: dilTIAZem HCL 125 MG/25 ML - 25 ML VIAL ONE (00:43)
[2024-09-12] MEDS ORDERED: ONDANSETRON 4 MG/2 ML VIAL ONE (01:02)
[2024-09-12] MEDS: dilTIAZem HCL 50 MG/10 ML - 10 ML VIAL IVPUSH ONE (01:08)
[2024-09-12] MEDS: ONDANSETRON 4 MG/2 ML VIAL IVPUSH ONE (01:08)
[2024-09-12] MEDS ORDERED: ACETAMINOPHEN 325 MG TABLET (FP) PO PRN (01:59)
[2024-09-12] MEDS ORDERED: DOCUSATE SODIUM 100 MG CAPSULE (FP) PO PRN (01:59)
[2024-09-12 04:52] VITALS: RESP 18
[2024-09-12] MEDS ORDERED: ALBUTEROL SO4 HFA INHALER IH PRN (04:53)
[2024-09-12] MEDS ORDERED: LORATADINE 10 MG TABLET PO PRN (05:01)
[2024-09-12 05:47] LABS: BASO % 0.4 % (0-2.0); EOS % 0.4 % (0-4.5); HEMATOCRIT 37.9 % (32.4-45.2); HEMOGLOBIN 12.1 GM/dL (10.7-15.3); LYMPH % 20.1 % (8-40); MCH 22.3 pg (25.7-33.7); MCHC 31.8 g/dl (32.0-36.0); MEAN PLT VOLUME 7.8 fl (7.5-11.1); MONO % 14.8 % (3.8-10.2); NEUT % 64.3 % (42.8-82.8); PLATELET COUNT 218 10^3/uL (134-434); RBC 5.41 M/mm3 (3.60-5.2); RDW 16.5 % (11.6-15.6); WHITE BLOOD COUNT 6.3 K/mm3 (4.0-10.0)
[2024-09-12 06:16] LABS: POTASSIUM 4.2 mmol/L (3.5-5.1)
[2024-09-12 06:17] LABS: CALCIUM 8.5 mg/dL (8.5-10.1)
[2024-09-12 06:18] LABS: BLOOD UREA NITROGEN 7.7 mg/dL (7-18)
[2024-09-12 06:21] LABS: CREATININE 0.5 mg/dL (0.55-1.3)
[2024-09-12] MEDS: hydrALAZINE HCL 25 MG TABLET (FP) PO SCH (06:31)
[2024-09-12] MEDS: METOCLOPRAMIDE HCL 10 MG TABLET (FP) PO SCH (06:32)
[2024-09-12] MEDS: INSULIN ASPART SLIDING SCALE (NOVOLOG) 1 VIAL SQ SCH (06:34)
[2024-09-12] MEDS: PANTOPRAZOLE SODIUM 40 MG VIAL IVPUSH SCH (10:06)
[2024-09-12] MEDS: metoPROLOL SUCCINATE 25 MG TAB.SR.24H (FP) PO SCH (10:07)
[2024-09-12] MEDS: APIXABAN 5 MG TABLET PO SCH (10:07)
[2024-09-12] MEDS: TIOTROPIUM BROMIDE 2.5 MCG (SPIRIVA) RESPIMAT INHALER IH SCH (10:07)
[2024-09-12] MEDS: MOMETASONE FUROATE 110 MCG/IH INHALER IH SCH (10:08)
[2024-09-12] MEDS: DIGOXIN 0.5 MG/2 ML AMPUL IVPUSH ONE (12:16)
[2024-09-12] MEDS: ROSUVASTATIN CA 10 MG TABLET PO SCH (21:45)
[2024-09-12] MEDS: FLUDROCORTISONE ACETATE 0.1 MG TABLET (FP) PO SCH (21:46)
[2024-09-12] MEDS: MONTELUKAST NA 10 MG TABLET PO SCH (21:46)
[2024-09-13] MEDS: LORATADINE 10 MG TABLET PO SCH (09:22)
[2024-09-13 10:23] LABS: POTASSIUM 4.1 mmol/L (3.5-5.1)
[2024-09-13 10:26] LABS: ALBUMIN 3.3 g/dl (3.4-5.0); BLOOD UREA NITROGEN 11.2 mg/dL (7-18); CALCIUM 8.8 mg/dL (8.5-10.1)
[2024-09-13 10:27] VITALS: BP 122/58; PULSE 68; TEMP 98.4
[2024-09-13 10:29] LABS: CREATININE 0.7 mg/dL (0.55-1.3)
[2024-09-13 10:31] LABS: BILIRUBIN,TOTAL 0.3 mg/dL (0.2-1); TOT PROT 5.9 g/dl (6.4-8.2)
== END 2024-09-13 10:31 | disposition home or self-care (01) ==
LOC: JER 22:00 → JERBED 23:55 → J4S 09-12 03:55
PROVIDERS: ADMIT Student in an Organized Health Care Education/Training Program; ATTEND Family Medicine
PROC: 3E033GC Introduction of Other Therapeutic Substance into Peripheral Vein, Percutaneous Approach (ICD-10-PCS; principal; 2024-09-11)
PROC: 3E013VG Introduction of Insulin into Subcutaneous Tissue, Percutaneous Approach (ICD-10-PCS; 2024-09-11)
PROC: 3E0337Z Introduction of Electrolytic and Water Balance Substance into Peripheral Vein, Percutaneous Approach (ICD-10-PCS; 2024-09-11)
DX: I48.0 Paroxysmal atrial fibrillation (principal); J45.909 Unspecified asthma, uncomplicated; I25.10 Atherosclerotic heart disease of native coronary artery without angina pectoris; I50.30 Unspecified diastolic (congestive) heart failure; N17.9 Acute kidney failure, unspecified; E11.9 Type 2 diabetes mellitus without complications; E78.5 Hyperlipidemia, unspecified; E87.1 Hypo-osmolality and hyponatremia; R79.89 Other specified abnormal findings of blood chemistry; D64.9 Anemia, unspecified; I34.0 Nonrheumatic mitral (valve) insufficiency; Z88.2 Allergy status to sulfonamides; I07.1 Rheumatic tricuspid insufficiency; Z88.8 Allergy status to other drugs, medicaments and biological substances
CPT/HCPCS: 0241U-QW; 36415; 71045-TC-FY; 80048; 80053; 81003; 82962; 83690; 83735; 83880; 83930; 83935; 84100; 84155; 84165; 84300; 84439; 84443; 84484; 85025; 85610; 85730; 87086; 93005; 93010; 96365; 96372; 96375; 99285-25; G0378